=== PATIENT | male | born 1960 | race Caucasian/White ===

== ENCOUNTER 2017-11-28 12:24 | Outpatient (CLI) | payer MEDICARE ==
[2017-11-28 14:38] LABS: #Eosinphils 0.1 thou/uL (0.0-0.7); #Lymphocytes 1.5 thou/uL (1.20-3.40); #Monocytes 0.9 thou/uL (0.11-0.59); #Neutrophils 5.4 thou/uL (1.40-6.50); %Basophils 0.2 % (0.0-1.0); %Eosinophils 1.5 % (0.0-10.0); %Lymphocytes 19.1 % (21.0-51.0); %Monocytes 11.2 % (0.0-10.0); %Neutrophils 67.9 % (42.0-75.0); Hemoglobin 12.5 g/dL (14.0-18.0); Mean Corpuscular HGB CONC 32.9 g/dL (32.0-36.0); Mean Corpuscular Volume 88.3 fl (80.0-94.0); Mean Platelet Volume 7.3 fL (7.4-10.4); Platelet Count 302 thou/uL (130-400); RBC Distribution Width 12.1 % (11.5-14.5); Red Blood Cell (RBC) Count 4.31 mill/uL (4.70-6.10); White Blood Cell (WBC) Count 7.9 thou/uL (4.8-10.8)
[2017-11-28 15:05] LABS: Anion Gap 14 mmol/L (10-20); BUN (Urea Nitrogen) 14 mg/dL (8.4-25.7); Calc. Creatinine Clearance 0 mL/min (70-130); Calcium 9.5 mg/dL (7.8-10.44); Carbon Dioxide 25 mmol/L (22-29); Chloride 104 mmol/L (98-107); Estimated GFR-MDRD Greater than 90; Glucose 72 mg/dL (70-105); Potassium 3.9 mmol/L (3.5-5.1); Sodium 139 mmol/L (136-145)
--- NOTE | 2018-01-30 21:06 | EKG ---
Test Reason : Blood Pressure : / mmHG Vent. Rate : 068 BPM Atrial Rate : 068 BPM P-R Int : 132 ms QRS Dur : 086 ms QT Int : 414 ms P-R-T Axes : 021 002 018 degrees QTc Int : 440 ms Normal sinus rhythm Normal ECG When compared with ECG of 22-JAN-2014 12:57, Premature ventricular complexes are no longer Present Confirmed by SAEID VITAL M.D. ([id number]) on 01/30/2018 9:06:21 PM Referred By: DARIAN Confirmed By:SAEID VITAL M.D.
== END 2017-11-28 12:25 | disposition home or self-care (01) ==
LOC: LABBT 12:24
PROVIDERS: ATTEND Orthopaedic Surgery Hand Surgery
DX: Z01.812 Encounter for preprocedural laboratory examination (principal); Z01.810 Encounter for preprocedural cardiovascular examination; G56.01 Carpal tunnel syndrome, right upper limb; M18.11 Unilateral primary osteoarthritis of first carpometacarpal joint, right hand; M65.341 Trigger finger, right ring finger
CPT/HCPCS: 80048; 85025; 85730; 93005; 93010

== ENCOUNTER 2017-12-18 19:30 | Outpatient (CLI) | payer MEDICARE | END 2017-12-18 19:31 | disposition home or self-care (01) | LOC: SLEEPLAB 19:30 | PROVIDERS: ATTEND Internal Medicine Critical Care Medicine | DX: G47.33 Obstructive sleep apnea (adult) (pediatric) (principal); G47.419 Narcolepsy without cataplexy; E66.9 Obesity, unspecified | CPT/HCPCS: 95811 ==

== ENCOUNTER 2017-12-19 08:00 | Outpatient (CLI) | payer MEDICARE | END 2017-12-19 08:01 | disposition home or self-care (01) | LOC: SLEEPLAB 08:00 | PROVIDERS: ATTEND Internal Medicine Critical Care Medicine | DX: G47.33 Obstructive sleep apnea (adult) (pediatric) (principal); G47.11 Idiopathic hypersomnia with long sleep time; G47.419 Narcolepsy without cataplexy | CPT/HCPCS: 95805 ==

== ENCOUNTER 2018-01-24 09:12 | Outpatient (CLI) | payer MEDICARE ==
[2018-01-24 10:23] LABS: #Eosinphils 0.2 thou/uL (0.0-0.7); #Lymphocytes 1.1 thou/uL (1.20-3.40); #Neutrophils 5.1 thou/uL (1.40-6.50); %Basophils 0.4 % (0.0-1.0); %Eosinophils 2.2 % (0.0-10.0); %Lymphocytes 15.3 % (21.0-51.0); %Monocytes 12.8 % (0.0-10.0); %Neutrophils 69.2 % (42.0-75.0); Hemoglobin 11.9 g/dL (14.0-18.0); Mean Corpuscular HGB CONC 32.6 g/dL (32.0-36.0); Mean Corpuscular Hemoglobin 28.6 pg (27.0-31.0); Mean Corpuscular Volume 87.7 fl (80.0-94.0); Mean Platelet Volume 7.4 fL (7.4-10.4); Platelet Count 279 thou/uL (130-400); RBC Distribution Width 13.4 % (11.5-14.5); Red Blood Cell (RBC) Count 4.15 mill/uL (4.70-6.10); White Blood Cell (WBC) Count 7.4 thou/uL (4.8-10.8)
[2018-01-24 10:32] LABS: Bilirubin Negative (Negative); Blood, Urine Negative (Negative); Clarity CLEAR (Clear); Glucose, Urine (Dipstick) Negative (Negative); Leukocyte Negative (Negative); Nitrite Negative (Negative); Protein, Urine (Dipstick) Negative (Neg-Trace); pH, Urine 6.5 (5.0-9.0)
[2018-01-24 10:35] LABS: Bacteria/HPF None Seen HPF (None Seen); Hyaline Casts/LPF 0-3 HYALINE CAST LPF (0-3 Hyaline); RBC/HPF 0-3 HPF (0-3); Squamous Epithelial None Seen HPF (0-3); WBC/HPF None Seen HPF (0-3)
[2018-01-24 10:42] LABS: Anion Gap 10 mmol/L (10-20); BUN (Urea Nitrogen) 19 mg/dL (8.4-25.7); Calc. Creatinine Clearance 0 mL/min (70-130); Calcium 9.7 mg/dL (7.8-10.44); Carbon Dioxide 27 mmol/L (22-29); Chloride 105 mmol/L (98-107); Estimated GFR-MDRD Greater than 90; Glucose 93 mg/dL (70-105); Potassium 3.9 mmol/L (3.5-5.1); Sodium 138 mmol/L (136-145)
--- NOTE | 2018-01-24 12:48 | RAD ---
TWO VIEWS CHEST: 01/24/2018 HISTORY: Preoperative patient. COMPARISON: 01/27/2017 FINDINGS: There is no pneumothorax, pleural fluid, focal consolidation, or alveolar edema. Heart and mediastin al contours are stable. There is multilevel disk space narrowing and anterior osteophyte formation t hroughout the thoracic spine. The cardiac silhouette is prominent on the lateral view, stable. IMPRESSION: Stable chronic findings, as described above. No acute findings. POS: [facility]
== END 2018-01-24 09:13 | disposition home or self-care (01) ==
LOC: LABBT 09:12
PROVIDERS: ATTEND Orthopaedic Surgery
DX: Z01.818 Encounter for other preprocedural examination (principal); M17.12 Unilateral primary osteoarthritis, left knee
CPT/HCPCS: 71046; 80048; 81001; 85025; 86850; 86900; 86901; 87081; 93005; 93010

== ENCOUNTER 2018-01-31 07:22 | Day surgery (SDC) | payer MEDICARE ==
[2018-01-24 12:00] VITALS: BMI 45.9
[2018-01-31] MEDS ORDERED: Fentanyl 100 MCG/2 ML VIAL ONE ×2 (07:58→11:56)
[2018-01-31] MEDS ORDERED: Midazolam HCl 2 mg/2 ml Vial ONE (07:58)
[2018-01-31] MEDS ORDERED: CEFAZOLIN/Water 2 GM/20 ML SYRINGE ONE (08:18)
[2018-01-31] MEDS ORDERED: Vancomycin HCl 2 GM, Admixture Fee 1 EACH in Sodium Chloride 0.9% 500 ML IVPB SCH (08:30)
[2018-01-31 08:43] LABS: INR-International Normal Ratio 1.1; PTT 36.3 SEC (22.9-36.1); Prothrombin Time 14.1 SEC (12.0-14.7)
[2018-01-31] MEDS ORDERED: Ondansetron HCl/PF 4 MG/2 ML Vial IVP PRN ×3 (09:46→12:40)
[2018-01-31] MEDS ORDERED: Promethazine HCl 25 MG/ML VIAL SLOW IVP PRN (09:46)
[2018-01-31] MEDS ORDERED: Promethazine HCl 25 MG/ML VIAL IM PRN ×3 (09:46→12:40)
[2018-01-31] MEDS ORDERED: Bupivacaine/Epinephrine 0.25% 30 ML VIAL ONE ×2 (09:55→11:16)
[2018-01-31] MEDS ORDERED: Morphine 10 MG/ML VIAL ONE ×2 (10:00→11:27)
[2018-01-31] MEDS ORDERED: Ropivacaine 0.5% HCl/PF (150 MG/30 ML VIAL) ONE (11:16)
[2018-01-31] MEDS ORDERED: Ondansetron HCl/PF 4 MG/2 ML Vial ONE (11:43)
[2018-01-31] MEDS ORDERED: PROPOFOL 200 MG/20 ML VIAL ONE (11:43)
[2018-01-31] MEDS ORDERED: Ketorolac Tromethamine 30 MG/ML VIAL ONE (11:43)
[2018-01-31] MEDS ORDERED: Tranexamic Acid 1,000 MG in Sodium Chloride 0.9% 100 ML IVPB SCH (11:45)
[2018-01-31] MEDS ORDERED: Zolpidem Tartrate 5 MG TAB PO PRN ×2 (11:58→12:40)
[2018-01-31] MEDS ORDERED: traMADol HCl 50 MG TAB PO PRN ×2 (11:58)
[2018-01-31] MEDS ORDERED: HYDROcodone/Acetaminophen 10/325 mg Tablet PO PRN ×3 (11:58→12:40)
[2018-01-31] MEDS ORDERED: Morphine 4 MG/ML VIAL SLOW IVP PRN (12:00)
[2018-01-31] MEDS ORDERED: Acetaminophen 1,000 MG in Premix Bag 1 BAG IVPB PRN (12:18)
[2018-01-31] MEDS ORDERED: oxyCODONE/Acetaminophen 5 mg/325 mg Tablet PO PRN ×2 (12:40→13:03)
[2018-01-31] MEDS ORDERED: Acetaminophen 325 MG TAB PO PRN (12:40)
[2018-01-31] MEDS ORDERED: diphenhydrAMINE 25 MG CAP PO PRN (12:40)
[2018-01-31] MEDS ORDERED: Fentanyl 100 MCG/2 ML VIAL SLOW IVP PRN ×2 (12:40)
[2018-01-31] MEDS: Ketorolac Tromethamine 30 MG/ML VIAL IVP SCH ×3 (12:49→23:27)
[2018-01-31] MEDS ORDERED: Oxymetazoline HCl 0.05% ( 15 ML ) NASAL PRN (13:37)
--- NOTE | 2018-01-31 13:39 | RAD ---
2 VIEWS LEFT KNEE: Date: 01/31/18 COMPARISON: None. HISTORY: Status post left knee arthroplasty. FINDINGS: Two views of the left knee show the patient to be status post left total knee arthroplasty with poste rior patellar resurfacing. No perihardware lucency is seen. Air in the soft tissues is from recent mahmood rgery. IMPRESSION: Status post left knee arthroplasty without evidence of complication. POS: [facility]
[2018-01-31] MEDS: HYDROcodone/Acetaminophen 10/325 mg Tablet PO PRN ×2 (14:30→20:25)
[2018-01-31] MEDS: Gabapentin 300 MG CAP PO SCH ×2 (14:31→20:22)
[2018-01-31] MEDS: Sodium Chloride 0.9% 1,000 ML IV SCH ×2 (14:38→23:28)
--- NOTE | 2018-01-31 14:46 | PDOC.PN ---
- Subjective Encounter Start Date: 01/31/18 Encounter Start Time: 13:45 Subjective: awake, c/o pain and wants pain pump -: no chest pain or sob or palp - Objective MAR Reviewed: Yes Vital Signs & Weight: Vital Signs (12 hours) Temp Pulse Resp BP Pulse Ox 01/31/18 14:09 97.2 F L 62 16 97 01/31/18 13:18 97.2 F L 62 16 134/70 97 Weight Weight 311 lb I&O: 01/30/18 01/31/18 02/01/18 06:59 06:59 06:59 Intake Total 100 Output Total 700 Balance -600 Phys Exam - Physical Examination HEENT: PERRLA, moist MMs Neck: no JVD, supple Respiratory: no wheezing, no rales Cardiovascular: RRR, no significant murmur Gastrointestinal: soft, non-tender, positive bowel sounds Musculoskeletal: pulses present left knee in dressing Neurological: non-focal, moves all 4 limbs Psychiatric: A&O x 3 Dx/Plan (1) Status post total knee replacement, left Code(s): Z96.652 - PRESENCE OF LEFT ARTIFICIAL KNEE JOINT Status: Acute (2) Obesity Code(s): E66.9 - OBESITY, UNSPECIFIED Status: Chronic Qualifiers: Obesity classification: adult class 3 (BMI >= 40) Body mass index: BMI 45.0 -49.9 (3) Hypothyroidism Code(s): E03.9 - HYPOTHYROIDISM, UNSPECIFIED Status: Chronic Qualifiers: Hypothyroidism type: unspecified Qualified Code(s): E03.9 - Hypothyroidism , unspecified (4) BPH (benign prostatic hyperplasia) Code(s): N40.0 - BENIGN PROSTATIC HYPERPLASIA WITHOUT LOWER URINRY TRACT SYMP Status: Chronic Qualifiers: Lower urinary tract symptom presence: unspecified whether lower urinary tract symptoms present Qualified Code(s): N40.0 - Benign prostatic hyperplasia without lower urinary tract symptoms (5) PRINCESS (obstructive sleep apnea) Code(s): G47.33 - OBSTRUCTIVE SLEEP APNEA (ADULT) (PEDIATRIC) Status: Chronic - Plan on asp bid for dvt prophylaxis -: wants opioid wire weaver, d/w [facility] is trying to set it up -: currently on Marcaine nr block, fentanyl prn for pain -: continue gabapentin, flomax and synthroid -: has voided post op, watch for resp depression with multiple pain meds/princess * . Review of Systems - Medications/Allergies Allergies/Adverse Reactions: Allergies Allergy/AdvReac Type Severity Reaction Status Date / Time No Known Allergies Allergy Verified 01/24/18 12:00 Medications: Current Medications Acetaminophen (Tylenol) 650 mg PO Q4H PRN PRN Reason: NESBITT/ T > 101F; Mild Pain (1-3) Hydrocodone Bitart/Acetaminophen ([place] 10/325) 1 tab PO Q4H PRN PRN Reason: Moderate Pain (4-6) Hydrocodone Bitart/Acetaminophen ([place] 10/325) 2 tab PO Q4H PRN PRN Reason: Severe Pain (7-10) Last Admin: 01/31/18 14:30 Dose: 2 tab Aspirin (Ecotrin) 81 mg PO BID [facility] Cefazolin Sodium (Ancef) 2 gm SLOW IVP 0800,1600,2359 [facility] Stop: 02/01/18 00:00 Cyclobenzaprine HCl (Flexeril) 10 mg PO TIDPRN PRN PRN Reason: Muscle Spasm Diphenhydramine HCl (Benadryl) 25 mg PO Q6H PRN PRN Reason: Itching Fentanyl (Sublimaze) 50 mcg SLOW IVP Q30MIN PRN PRN Reason: Moderate Pain (4-6) Fentanyl (Sublimaze) 100 mcg SLOW IVP Q1H PRN PRN Reason: Severe Pain (7-10) Ferrous Gluconate (Fergon) 324 mg PO BID [facility] Gabapentin (Neurontin) 300 mg PO TID [facility] Last Admin: 01/31/18 14:31 Dose: 300 mg Bupivacaine HCl 50 ml/ Sodium (Chloride) 100 mls @ 8 mls/hr NERVE BLCK INF [facility] Acetaminophen 1,000 mg/ Device 100 mls @ 400 mls/hr IVPB Q6H PRN PRN Reason: Fever/Mild Pain Stop: 02/01/18 12:19 Sodium Chloride (Normal Saline 0.9%) 1,000 mls @ 100 mls/hr IV .Q10H [facility] Last Admin: 01/31/18 14:38 Dose: 1,000 mls Vancomycin HCl 2 gm/ Sodium (Chloride) 500 mls @ 250 mls/hr IVPB 2000 [facility] Stop: 01/31/18 21:59 Iron/Minerals/Multivitamins (Theragran M) 1 tab PO DAILY [facility] Ketorolac Tromethamine (Toradol) 30 mg IVP Q6HR [facility] Stop: 02/02/18 06:01 Last Admin: 01/31/18 12:49 Dose: Not Given Levothyroxine Sodium (Synthroid) 50 mcg PO 0600 [facility] Modafinil (Provigil) 200 mg PO BID [facility] Morphine Sulfate (Morphine) 2 mg SLOW IVP Q1H PRN PRN Reason: Breakthrough Pain Ondansetron HCl (Zofran) 4 mg IVP Q6H PRN PRN Reason: Nausea/Vomiting Oxycodone/Acetaminophen (Percocet 5/325) 1 tab PO Q4H PRN PRN Reason: SEVERE Pain 1ST LINE Oxycodone/Acetaminophen (Percocet 5/325) 2 tab PO Q4H PRN PRN Reason: SEVERE Pain 2ND LINE Oxymetazoline HCl (Oxymetazoline Hcl) 0 sprays NASAL DAILYPRN PRN PRN Reason: Nasal Congestion Promethazine HCl (Phenergan) 12.5 mg IM Q4H PRN PRN Reason: Nausea/Vomiting Senna/Docusate Sodium (Senokot S) 2 tab PO BID [facility] Sodium Chloride (Flush - Normal Saline) 10 ml IVF PRN PRN PRN Reason: Saline Flush Tamsulosin HCl (Flomax) 0.4 mg PO QAM [facility] Tramadol HCl (Ultram) 50 mg PO Q6H PRN PRN Reason: Mild Pain (1-3) Tramadol HCl (Ultram) 100 mg PO Q6H PRN PRN Reason: Mild Pain (1-3) Zolpidem Tartrate (Ambien) 5 mg PO HSPRN PRN PRN Reason: Insomnia
[2018-01-31] MEDS: CEFAZOLIN/Water 2 GM/20 ML SYRINGE SLOW IVP SCH ×2 (18:08→23:26)
[2018-01-31] MEDS: Aspirin 81 mg Enteric Coated Tablet PO SCH (20:22)
[2018-01-31] MEDS: Senokot S 8.6-50 MG TAB PO SCH (20:22)
[2018-01-31] MEDS: Ferrous Gluconate 324 MG TAB PO SCH (20:22)
[2018-01-31] MEDS: Modafinil 100 MG TAB PO SCH (20:25)
[2018-01-31] MEDS: Cyclobenzaprine 10 MG TAB PO PRN (21:10)
[2018-01-31] MEDS: traMADol HCl 50 MG TAB PO PRN (22:23)
[2018-01-31] MEDS: Bupivacaine 0.5% 50 ML in Sodium Chloride 0.9% 50 ML NERVE BLCK SCH (23:30)
[2018-02-01] MEDS: HYDROcodone/Acetaminophen 10/325 mg Tablet PO PRN ×2 (00:45→06:28)
[2018-02-01 04:43] LABS: Hemoglobin 10.4 g/dL (14.0-18.0); Mean Corpuscular HGB CONC 32.7 g/dL (32.0-36.0); Mean Corpuscular Hemoglobin 28.3 pg (27.0-31.0); Mean Corpuscular Volume 86.3 fl (80.0-94.0); Mean Platelet Volume 6.5 fL (7.4-10.4); Platelet Count 221 thou/uL (130-400); RBC Distribution Width 13.4 % (11.5-14.5); Red Blood Cell (RBC) Count 3.68 mill/uL (4.70-6.10); White Blood Cell (WBC) Count 8.8 thou/uL (4.8-10.8)
[2018-02-01 04:55] LABS: Anion Gap 11 mmol/L (10-20); BUN (Urea Nitrogen) 20 mg/dL (8.4-25.7); Calc. Creatinine Clearance 198 mL/min (70-130); Calcium 8.8 mg/dL (7.8-10.44); Carbon Dioxide 26 mmol/L (22-29); Chloride 103 mmol/L (98-107); Estimated GFR-MDRD Greater than 90; Glucose 103 mg/dL (70-105); Sodium 136 mmol/L (136-145)
[2018-02-01] MEDS: Levothyroxine Sodium 50 MCG TAB PO SCH (06:28)
[2018-02-01] MEDS: Ketorolac Tromethamine 30 MG/ML VIAL IVP SCH ×4 (06:29→23:05)
[2018-02-01] MEDS: traMADol HCl 50 MG TAB PO PRN (07:12)
[2018-02-01] MEDS: Cyclobenzaprine 10 MG TAB PO PRN (08:03)
[2018-02-01] MEDS: Sodium Chloride 0.9% 1,000 ML IV SCH ×2 (08:11→18:47)
[2018-02-01] MEDS: Aspirin 81 mg Enteric Coated Tablet PO SCH ×2 (08:11→20:45)
[2018-02-01] MEDS: Ferrous Gluconate 324 MG TAB PO SCH ×2 (08:12→20:45)
[2018-02-01] MEDS: Tamsulosin HCl 0.4 MG CAP PO SCH (08:12)
[2018-02-01] MEDS: Multivitamin W/ Minerals 1 TAB PO SCH (08:12)
[2018-02-01] MEDS: Senokot S 8.6-50 MG TAB PO SCH ×2 (08:12→20:45)
[2018-02-01] MEDS: Gabapentin 300 MG CAP PO SCH ×3 (08:12→20:45)
[2018-02-01] MEDS: Modafinil 100 MG TAB PO SCH ×2 (09:10→20:46)
[2018-02-01] MEDS ORDERED: fentaNYL Citrate/PF 2,000 MCG in Sodium Chloride 0.9% 60 ML IV PRN (11:30)
[2018-02-01] MEDS: Acetaminophen 1,000 MG in Premix Bag 1 BAG IVPB SCH ×3 (11:57→23:06)
--- NOTE | 2018-02-01 12:12 | PDOC.PN ---
- Subjective Encounter Start Date: 02/01/18 Encounter Start Time: 09:45 Subjective: just got fentanyl 100mg iv and a bit lethargic -: no sob or chest pain - Objective MAR Reviewed: Yes Vital Signs & Weight: Vital Signs (12 hours) Temp Pulse Resp BP Pulse Ox 02/01/18 08:00 98.6 F 86 22 H 120/79 93 L 02/01/18 05:00 99.1 F 85 16 106/66 95 Weight Weight 311 lb I&O: 01/31/18 02/01/18 02/02/18 06:59 06:59 06:59 Intake Total 100 Output Total 700 Balance -600 Result Diagrams: 02/01/18 04:33 02/01/18 04:33 Phys Exam - Physical Examination HEENT: PERRLA, moist MMs Neck: no nodes, no JVD Respiratory: no wheezing, no rales Cardiovascular: RRR, no significant murmur Gastrointestinal: soft, non-tender, positive bowel sounds Musculoskeletal: pulses present left knee in dressing Neurological: non-focal, moves all 4 limbs Psychiatric: A&O x 3 Dx/Plan (1) Status post total knee replacement, left Code(s): Z96.652 - PRESENCE OF LEFT ARTIFICIAL KNEE JOINT Status: Acute (2) Obesity Code(s): E66.9 - OBESITY, UNSPECIFIED Status: Chronic Qualifiers: Obesity classification: adult class 3 (BMI >= 40) Body mass index: BMI 45.0 -49.9 (3) Hypothyroidism Code(s): E03.9 - HYPOTHYROIDISM, UNSPECIFIED Status: Chronic Qualifiers: Hypothyroidism type: unspecified Qualified Code(s): E03.9 - Hypothyroidism , unspecified (4) BPH (benign prostatic hyperplasia) Code(s): N40.0 - BENIGN PROSTATIC HYPERPLASIA WITHOUT LOWER URINRY TRACT SYMP Status: Chronic Qualifiers: Lower urinary tract symptom presence: unspecified whether lower urinary tract symptoms present Qualified Code(s): N40.0 - Benign prostatic hyperplasia without lower urinary tract symptoms (5) PRINCESS (obstructive sleep apnea) Code(s): G47.33 - OBSTRUCTIVE SLEEP APNEA (ADULT) (PEDIATRIC) Status: Chronic - Plan continue asp bid, gabapentin, synthroid and flomax -: pain mgmt per ortho advice -: has worked with PT yesterday -: dc plan per ortho advice * . Review of Systems - Medications/Allergies Allergies/Adverse Reactions: Allergies Allergy/AdvReac Type Severity Reaction Status Date / Time No Known Allergies Allergy Verified 01/24/18 12:00 Medications: Current Medications Acetaminophen (Tylenol) 650 mg PO Q4H PRN PRN Reason: NESBITT/ T > 101F; Mild Pain (1-3) Aspirin (Ecotrin) 81 mg PO BID [facility] Last Admin: 02/01/18 08:11 Dose: 81 mg Diphenhydramine HCl (Benadryl) 25 mg PO Q6H PRN PRN Reason: Itching Ferrous Gluconate (Fergon) 324 mg PO BID [facility] Last Admin: 02/01/18 08:12 Dose: 324 mg Gabapentin (Neurontin) 300 mg PO TID [facility] Last Admin: 02/01/18 08:12 Dose: 300 mg Bupivacaine HCl 50 ml/ Sodium (Chloride) 100 mls @ 8 mls/hr NERVE BLCK INF [facility] Last Admin: 01/31/18 23:30 Dose: 100 mls Sodium Chloride (Normal Saline 0.9%) 1,000 mls @ 100 mls/hr IV .Q10H [facility] Last Admin: 02/01/18 08:11 Dose: Not Given Acetaminophen 1,000 mg/ Device 100 mls @ 400 mls/hr IVPB Q6HR [facility] Stop: 02/02/18 06:14 Last Admin: 02/01/18 11:57 Dose: 100 mls Fentanyl Citrate 2,000 mcg/ (Sodium Chloride) 100 mls @ 0 mls/hr IV INF PRN; As Directed PRN Reason: Pain Iron/Minerals/Multivitamins (Theragran M) 1 tab PO DAILY [facility] Last Admin: 02/01/18 08:12 Dose: 1 tab Ketorolac Tromethamine (Toradol) 30 mg IVP Q6HR [facility] Stop: 02/02/18 06:01 Last Admin: 02/01/18 11:53 Dose: 30 mg Levothyroxine Sodium (Synthroid) 50 mcg PO 0600 [facility] Last Admin: 02/01/18 06:28 Dose: 50 mcg Modafinil (Provigil) 200 mg PO BID [facility] Last Admin: 02/01/18 09:10 Dose: 200 mg Ondansetron HCl (Zofran) 4 mg IVP Q6H PRN PRN Reason: Nausea/Vomiting Oxymetazoline HCl (Oxymetazoline Hcl) 0 sprays NASAL DAILYPRN PRN PRN Reason: Nasal Congestion Promethazine HCl (Phenergan) 12.5 mg IM Q4H PRN PRN Reason: Nausea/Vomiting Senna/Docusate Sodium (Senokot S) 2 tab PO BID [facility] Last Admin: 02/01/18 08:12 Dose: 2 tab Sodium Chloride (Flush - Normal Saline) 10 ml IVF PRN PRN PRN Reason: Saline Flush Tamsulosin HCl (Flomax) 0.4 mg PO QAM [facility] Last Admin: 02/01/18 08:12 Dose: 0.4 mg
[2018-02-01] MEDS: Bupivacaine 0.5% 50 ML in Sodium Chloride 0.9% 50 ML NERVE BLCK SCH (13:07)
--- NOTE | 2018-02-01 13:43 | OP ---
DATE OF PROCEDURE: 01/31/2018 PREOPERATIVE DIAGNOSIS: Left knee osteoarthritis. POSTOPERATIVE DIAGNOSIS: Left knee osteoarthritis. PROCEDURE PERFORMED: Left total knee arthroplasty. STAFF: Kenan Lorenz M.D. PROMOTIONS EXECUTIVE PRODUCER: Talon Garcia PA-C. ANESTHESIA: Conn. The patient received LMA with a adductor canal catheter and single shot sciatic. ESTIMATED BLOOD LOSS: 100 mL. TOURNIQUET TIME: 95 minutes at 300 mmHg. ANTIBIOTICS: Ancef 2 grams and vancomycin 2 grams. The patient received TXA 1 gram. IMPLANTS: A [place] Triathlon size 6 femur, size 6 tibial tray, A32 patella, and a Polar OLED poly 7 size 9 mm, Triathlon X3. COMPLICATIONS: None. HISTORY OF PRESENT ILLNESS: Mr. Romeo is a pleasant 57-year-old male who has a history of right total knee arthroplasty. The patient has history of left knee arthritis, had received injections with pain relief. The patient complained of pain of 10/10. He has been taking care of his and he continued to have pain in his knee. The patient understands the risks and benefits of left total knee arthroplasty to include pain, scar, bleeding, infection, damage to vital structures, decreased range of motion or strength, failure of procedure, continued pain despite intervention, loss of life or limb. The patient understood the risks and benefits and elected to proceed. PROCEDURE NOTE: Time-out was performed designating the patient's left lower extremity as the operative site based on sight, consents, marking. After completion of timeout, the patient's lower extremity was prepped and draped in sterile fashion. The patient had the tourniquet brought up and left up for a total of 95 minutes. With anterior midline approach, medial patellar arthrotomy , we exposed and excised the fat pad, removed some of the osteophytes of the patella. We then did a medial soft tissue release, which significantly scarred a subluxed meniscus that was scarred into the soft tissue plane. We had to go back and do a little more release for complete circumferential distally for large medial osteophyte. We then everted the patella and brought the patient up into flexion, found the distal femur, removed some of the synovium to expose the distal femur for a cut. We then pinned our guide into place, cut in 0 degrees varus valgus 8 and 11 with 5 degrees anterior slope. We cut the bone. We then went back and sized the patient's posterior medial wear, which we accounted for to get a better epicondylar access, pinned our tray into place in 3 degrees of external rotation. We then sized to a size 6 at his previous side , pinned our block in place, cut anterior and posterior and chamfer cuts, had a little bit of notching anteriorly, which we beveled with the saw. We then removed all the bone osteophytes. We then curetted and decompressed the medial gutter. We then moved to our tibia. It was difficult to get the patient's tibia subluxed. We actually got into bone the first time and placed a pickle fork in position. We then placed it a second time. We excised it. We pinned the guide into the tibia to map out the femur, but we had some difficulty with this perfectly placed; therefore, we re-pinned it. After we had exposed the tibia better, we pinned it in place. We cut at first with a -1 and 3 and went up to 1 and 5 mm 0 degrees varus valgus with about a 4-degree slope. The patient had some difficulties because he had a defect in the posteromedial aspect, which we saw did not take as much medially off as we desired. We removed the fragments. We then subluxed the tibia, placed our lamina certified technician specialist, excised all the posterior fragments using our osteotome as well as curette to decompress the PCL, released the PCL to degree of extent. We also decompressed the posterior medial tibia as well as removed the osteophytes off the medial aspect of the tibia to rasp the posterior medial osteophyte down. We then, after decompressed all the gutters, removed all the menisci. We placed our tibial tray in line with the tibial tubercle anterior one-third and pinned it into position and placed the 9 mm poly. The patient had full extension, good flexion and stability. He did split the tray a little bit in flexion which we think was likely the posterior medial rise in our tibial cut, which we then rasped again to release the PCL. We liked the overall tracking and alignment with good position of the tibial as well as the femur. Therefore, we pinned it even with patella. We cut the patella down from 24 down to about 14 mm, rongeured out some of the medial osteophytes, and felt like we had good size, drilled and good tracking. We then removed all the patella. We then placed the patient's subtle flexion and drilled our lug holes for femur, removed our implants, and except for tibia tray cut our keel for tibia, removed all the implants, recessed PCL, ensured that we rasped on the tibia to ensure that helped with its positioning. Washed all the components out. We then cemented the tibia, femur, removed excess cement, placed in full extension and good flexion. We found it did not split. We then had good anterior, posterior translation, removed all the excess cement, everted the patella, cemented the patella and placed a clamp across removed all excess cement, washed and closed the medial patellar arthrotomy with #2 Vicryl, 2 Quill, 0 Quill, 2-0 Quill, and glue. The patient will be admitted per protocol at [facility] outpatient. We will see how he does. We will have a rehab consult given the patient's previous history of difficulty after his last total knee. CHAIM
[2018-02-02] MEDS: Bupivacaine 0.5% 50 ML in Sodium Chloride 0.9% 50 ML NERVE BLCK SCH (03:38)
[2018-02-02 04:32] LABS: Hemoglobin 10.4 g/dL (14.0-18.0); Mean Corpuscular HGB CONC 32.8 g/dL (32.0-36.0); Mean Corpuscular Hemoglobin 28.4 pg (27.0-31.0); Mean Corpuscular Volume 86.8 fl (80.0-94.0); Mean Platelet Volume 7.1 fL (7.4-10.4); Platelet Count 247 thou/uL (130-400); RBC Distribution Width 13.5 % (11.5-14.5); Red Blood Cell (RBC) Count 3.67 mill/uL (4.70-6.10); White Blood Cell (WBC) Count 8.9 thou/uL (4.8-10.8)
[2018-02-02] MEDS: Ketorolac Tromethamine 30 MG/ML VIAL IVP SCH (05:38)
[2018-02-02] MEDS: Acetaminophen 1,000 MG in Premix Bag 1 BAG IVPB SCH (05:38)
[2018-02-02] MEDS: Sodium Chloride 0.9% 1,000 ML IV SCH (05:39)
[2018-02-02] MEDS: Levothyroxine Sodium 50 MCG TAB PO SCH (05:39)
[2018-02-02] MEDS: Modafinil 100 MG TAB PO SCH ×2 (09:27→15:19)
[2018-02-02] MEDS: Gabapentin 300 MG CAP PO SCH ×2 (09:28→15:03)
[2018-02-02] MEDS: Multivitamin W/ Minerals 1 TAB PO SCH (09:28)
[2018-02-02] MEDS: Ferrous Gluconate 324 MG TAB PO SCH (09:29)
[2018-02-02] MEDS: Senokot S 8.6-50 MG TAB PO SCH (09:29)
[2018-02-02] MEDS: Tamsulosin HCl 0.4 MG CAP PO SCH (09:30)
[2018-02-02] MEDS: Aspirin 81 mg Enteric Coated Tablet PO SCH (09:30)
[2018-02-02] MEDS ORDERED: oxyCODONE/Acetaminophen 5 mg/325 mg Tablet PO PRN ×5 (09:58→12:16)
[2018-02-02] MEDS: oxyCODONE/Acetaminophen 5 mg/325 mg Tablet PO PRN ×2 (12:19→16:07)
[2018-02-02] MEDS ORDERED: Ropivacaine 0.2% 550 ML 550 ML NERVE BLCK SCH (13:14)
--- NOTE | 2018-02-02 13:40 | PDOC.PN ---
- Subjective Encounter Start Date: 02/02/18 Encounter Start Time: 09:30 Subjective: feels better, pain is controlled well now -: is seen ambulating with PT this am - Objective MAR Reviewed: Yes Vital Signs & Weight: Vital Signs (12 hours) Temp Pulse Resp BP Pulse Ox 02/02/18 11:05 98.8 F 96 16 142/87 H 96 02/02/18 07:40 98.6 F 89 16 127/86 95 02/02/18 04:09 98.4 F 85 16 106/72 94 L Weight Admit Weight 311 lb Weight 311 lb I&O: 02/01/18 02/02/18 02/03/18 06:59 06:59 06:59 Intake Total 100 4620 Output Total 700 1450 Balance -600 3170 Result Diagrams: 02/02/18 03:51 02/01/18 04:33 Phys Exam - Physical Examination HEENT: PERRLA, moist MMs Neck: no JVD, supple Respiratory: no wheezing, no rales Cardiovascular: RRR, no significant murmur Gastrointestinal: soft, non-tender, positive bowel sounds Musculoskeletal: pulses present left knee post op changes, looks good Neurological: non-focal, moves all 4 limbs Psychiatric: normal affect, A&O x 3 Dx/Plan (1) Status post total knee replacement, left Code(s): Z96.652 - PRESENCE OF LEFT ARTIFICIAL KNEE JOINT Status: Acute (2) Obesity Code(s): E66.9 - OBESITY, UNSPECIFIED Status: Chronic Qualifiers: Obesity classification: adult class 3 (BMI >= 40) Body mass index: BMI 45.0 -49.9 (3) Hypothyroidism Code(s): E03.9 - HYPOTHYROIDISM, UNSPECIFIED Status: Chronic Qualifiers: Hypothyroidism type: unspecified Qualified Code(s): E03.9 - Hypothyroidism , unspecified (4) BPH (benign prostatic hyperplasia) Code(s): N40.0 - BENIGN PROSTATIC HYPERPLASIA WITHOUT LOWER URINRY TRACT SYMP Status: Chronic Qualifiers: Lower urinary tract symptom presence: unspecified whether lower urinary tract symptoms present Qualified Code(s): N40.0 - Benign prostatic hyperplasia without lower urinary tract symptoms (5) PRINCESS (obstructive sleep apnea) Code(s): G47.33 - OBSTRUCTIVE SLEEP APNEA (ADULT) (PEDIATRIC) Status: Chronic - Plan hemostable -: wears his cpap at night -: dc plan per ortho advice -: is working well with PT * . Review of Systems - Medications/Allergies Allergies/Adverse Reactions: Allergies Allergy/AdvReac Type Severity Reaction Status Date / Time No Known Allergies Allergy Verified 01/24/18 12:00 Medications: Current Medications Acetaminophen (Tylenol) 650 mg PO Q4H PRN PRN Reason: NESBITT/ T > 101F; Mild Pain (1-3) Aspirin (Ecotrin) 81 mg PO BID [facility] Last Admin: 02/02/18 09:30 Dose: 81 mg Diphenhydramine HCl (Benadryl) 25 mg PO Q6H PRN PRN Reason: Itching Ferrous Gluconate (Fergon) 324 mg PO BID [facility] Last Admin: 02/02/18 09:29 Dose: 324 mg Gabapentin (Neurontin) 300 mg PO TID [facility] Last Admin: 02/02/18 09:28 Dose: 300 mg Sodium Chloride (Normal Saline 0.9%) 1,000 mls @ 100 mls/hr IV .Q10H [facility] Last Admin: 02/02/18 05:39 Dose: Not Given Ropivacaine (Ropivacaine 0.2% 550 Ml) 550 mls @ 10 mls/hr NERVE BLCK INF [facility] Iron/Minerals/Multivitamins (Theragran M) 1 tab PO DAILY [facility] Last Admin: 02/02/18 09:28 Dose: 1 tab Levothyroxine Sodium (Synthroid) 50 mcg PO 0600 [facility] Last Admin: 02/02/18 05:39 Dose: 50 mcg Modafinil (Provigil) 200 mg PO 0700,1400 [facility] Last Admin: 02/02/18 09:27 Dose: 200 mg Ondansetron HCl (Zofran) 4 mg IVP Q6H PRN PRN Reason: Nausea/Vomiting Oxycodone/Acetaminophen (Percocet 5/325) 1 tab PO Q4H PRN PRN Reason: Moderate Pain (2-4) Oxycodone/Acetaminophen (Percocet 5/325) 2 tab PO Q4H PRN PRN Reason: Severe Pain (5-10) Last Admin: 02/02/18 12:19 Dose: 2 tab Oxymetazoline HCl (Oxymetazoline Hcl) 0 sprays NASAL DAILYPRN PRN PRN Reason: Nasal Congestion Promethazine HCl (Phenergan) 12.5 mg IM Q4H PRN PRN Reason: Nausea/Vomiting Senna/Docusate Sodium (Senokot S) 2 tab PO BID [facility] Last Admin: 02/02/18 09:29 Dose: 2 tab Sodium Chloride (Flush - Normal Saline) 10 ml IVF PRN PRN PRN Reason: Saline Flush Tamsulosin HCl (Flomax) 0.4 mg PO QAM [facility] Last Admin: 02/02/18 09:30 Dose: 0.4 mg
[2018-02-02 16:23] VITALS: BP 139/71; TEMP 99
--- NOTE | 2018-02-02 18:13 | DIS ---
DATE OF ADMISSION: 01/31/2018 DATE OF DISCHARGE: 02/02/2018 DISCHARGE DISPOSITION: To home. PRIMARY DISCHARGE DIAGNOSIS: Status post left total knee replacement. SECONDARY DISCHARGE DIAGNOSES: Hypothyroidism, benign prostatic hypertrophy, obesity, obstructive sleep apnea. PROCEDURES DONE DURING HOSPITALIZATION: Patient has had left total knee replacement done by Dr. Lorenz on 01/31/2018. Discharge H&H 10 and 31, platelet count 247. Discharge BUN and creatinine is 20 and 0.8. DISCHARGE MEDICATIONS: Aspirin 81 mg p.o. twice daily for post-knee replacement , DVT prophylaxis, Flexeril 1 tab 10 mg p.r.n. 3 times daily, diclofenac 50 mg twice daily p.r.n., gabapentin 300 mg p.o. 3 times daily, levothyroxine 50 mcg p.o. daily, Percocet p.r.n., Flomax 0.4 mg p.o. q.a.m., Ultram p.r.n. ALLERGIES: No known drug allergies. DISCHARGE PLAN: The patient to follow up with Dr. Lorenz as advised and primary care physician in 1 week. BRIEF COURSE DURING HOSPITALIZATION: The patient electively got admitted for left total knee replacement by Dr. Lorenz. This was done on the . Postop [facility] were consulted for comanagement of medical issues. The patient has remained hemodynamically stable postop. He has been compliant with his CPAP. Patient did not have any urinary retention. He needs to continue aspirin twice daily for postop left knee replacement, DVT prophylaxis. He is actively participating with physical therapy. He has been cleared for discharge later this evening by Orthopedic Surgery. Please see a face to face documentation on [facility] for the day of discharge. WILLYD
== END 2018-02-02 18:00 | disposition home or self-care (01) ==
LOC: SDC 07:22 → SJJU 12:40 → SDC 02-02 18:00
PROVIDERS: ATTEND Orthopaedic Surgery
PROC: 0SRD0J9 Replacement of Left Knee Joint with Synthetic Substitute, Cemented, Open Approach (ICD-10-PCS; principal; 2018-01-31)
DX: E66.9 Obesity, unspecified; F17.290 Nicotine dependence, other tobacco product, uncomplicated; Z68.42 Body mass index [BMI] 45.0-49.9, adult; E03.9 Hypothyroidism, unspecified; Z79.82 Long term (current) use of aspirin; N40.0 Benign prostatic hyperplasia without lower urinary tract symptoms; M17.12 Unilateral primary osteoarthritis, left knee; G47.33 Obstructive sleep apnea (adult) (pediatric); Z99.89 Dependence on other enabling machines and devices; Z79.899 Other long term (current) drug therapy
CPT/HCPCS: 27447; 73560; 80048; 85027; 85610; 85730; 86850; 86900; 86901; 97110 ×2; 97116 ×3; 97139 ×3; 97150; 97530 ×2; A4306; C1713; C1776; G8978; G8979; G8987; G8988; J3010; 36415; J0131; J1885; J2250; J2270; J2405; J2704; J2795; J3370; J3490; J7050

== ENCOUNTER 2022-04-30 11:51 | Inpatient (IN) | payer MEDICARE, OTHER ==
[2022-04-30 12:32] LABS: #Basophils 0.1 thou/uL (0.0-0.2); #Eosinphils 0.2 thou/uL (0.0-0.7); #Lymphocytes 1.4 thou/uL (1.20-3.40); #Monocytes 1.2 thou/uL (0.11-0.59); #Neutrophils 7.1 thou/uL (1.40-6.50); %Basophils 0.5 % (0.0-1.0); %Lymphocytes 13.7 % (21.0-51.0); %Monocytes 12.1 % (0.0-10.0); %Neutrophils 71.6 % (42.0-75.0); Hemoglobin 10.6 g/dL (14.0-18.0); Mean Corpuscular HGB CONC 30.6 g/dL (32.0-36.0); Mean Corpuscular Hemoglobin 26.4 pg (27.0-31.0); Mean Corpuscular Volume 86.4 fL (78.0-98.0); Mean Platelet Volume 7.8 fL (7.4-10.4); Platelet Count 200 thou/uL (130-400); RBC Distribution Width 13.8 % (11.5-14.5); Red Blood Cell (RBC) Count 4.03 mill/uL (4.70-6.10)
[2022-04-30] MEDS ORDERED: Dexamethasone 10 MG/ML VIAL ONE (12:35)
[2022-04-30 12:52] LABS: ALT (SGPT) 18 U/L (8-55); AST (SGOT) 20 U/L (5-34); Albumin 3.4 g/dL (3.5-5.0); Alkaline Phosphatase 81 U/L (40-110); Anion Gap 14 mmol/L (10-20); BUN (Urea Nitrogen) 25 mg/dL (8.4-25.7); Bilirubin, Total 0.4 mg/dL (0.2-1.2); Calc. Creatinine Clearance 0 mL/min (70-130); Carbon Dioxide 27 mmol/L (22-29); Chloride 99 mmol/L (98-107); Estimated GFR 59; Glucose 122 mg/dL (70-105); Potassium 4.7 mmol/L (3.5-5.1); Protein, Total 7.4 g/dL (6.0-8.3); Sodium 135 mmol/L (136-145)
[2022-04-30 12:57] LABS: Calcium 14.2 mg/dL (7.8-10.44)
[2022-04-30] MEDS ORDERED: Calcitonin,Synthetic 200 UNITS/ML MDV SC SCH (13:30)
[2022-04-30 15:25] LABS: Bilirubin Negative (Negative); Blood, Urine Negative (Negative); Clarity Clear (Clear); Glucose, Urine (Dipstick) Normal (Negative); Ketone, Urine Negative (Negative); Leukocyte Negative Leu/uL (Negative); Nitrite Negative (Negative); Protein, Urine (Dipstick) Negative (Neg-Trace); Specific Gravity, Urine 1.017 (1.002-1.036); Urobilinogen Normal mg/dL (Less than 2); pH, Urine 5.5 (5.0-9.0)
[2022-04-30] MEDS ORDERED: hydrALAZINE 20 MG/ML VIAL SLOW IVP PRN (15:52)
[2022-04-30] MEDS ORDERED: Ondansetron ODT 4 MG TAB PO PRN (15:52)
[2022-04-30] MEDS ORDERED: Ondansetron PF 4 MG/2 ML Vial IVP PRN (15:52)
[2022-04-30] MEDS: Sodium Chloride 0.9% 1,000 ML IV SCH ×2 (17:11→22:38)
[2022-04-30 17:16] VITALS: BMI 48.2
[2022-04-30] MEDS: Dexamethasone 4 mg/ml Vial SLOW IVP SCH ×2 (19:02→23:49)
[2022-04-30] MEDS: HYDROcodone/Acetaminophen 10/325 mg Tablet PO PRN (20:38)
[2022-04-30] MEDS: Polyethylene Glycol 3350 17 GM Packet PO SCH (20:38)
[2022-04-30] MEDS: Gabapentin 300 MG CAP PO SCH (20:39)
[2022-04-30] MEDS: Acetaminophen 500 MG TAB PO PRN (23:47)
[2022-05-01] MEDS: HYDROcodone/Acetaminophen 10/325 mg Tablet PO PRN ×2 (04:24→20:19)
[2022-05-01 05:52] LABS: #Lymphocytes 0.7 thou/uL (1.20-3.40); #Monocytes 0.7 thou/uL (0.11-0.59); #Neutrophils 9.1 thou/uL (1.40-6.50); %Basophils 0.1 % (0.0-1.0); %Eosinophils 0.2 % (0.0-10.0); %Lymphocytes 6.9 % (21.0-51.0); %Monocytes 6.5 % (0.0-10.0); %Neutrophils 86.4 % (42.0-75.0); ALT (SGPT) 17 U/L (8-55); AST (SGOT) 12 U/L (5-34); Albumin 3.4 g/dL (3.5-5.0); Alkaline Phosphatase 78 U/L (40-110); Anion Gap 15 mmol/L (10-20); BUN (Urea Nitrogen) 26 mg/dL (8.4-25.7); Bilirubin, Total 0.3 mg/dL (0.2-1.2); Calc. Creatinine Clearance 124 mL/min (70-130); Carbon Dioxide 25 mmol/L (22-29); Chloride 103 mmol/L (98-107); Estimated GFR 61; Globulin 4.1 g/dL (2.4-3.5); Glucose 168 mg/dL (70-105); Hemoglobin 10.9 g/dL (14.0-18.0); MDiff Complete? YES; Mean Corpuscular Hemoglobin 26.7 pg (27.0-31.0); Mean Corpuscular Volume 86.1 fL (78.0-98.0); Mean Platelet Volume 7.4 fL (7.4-10.4); Platelet Clumps SLIGHT; Platelet Count 306 thou/uL (130-400); Platelet Morphology Comment Appears Adequate; Potassium 4.3 mmol/L (3.5-5.1); Protein, Total 7.5 g/dL (6.0-8.3); RBC Distribution Width 13.7 % (11.5-14.5); Red Blood Cell (RBC) Count 4.08 mill/uL (4.70-6.10); Sodium 139 mmol/L (136-145); White Blood Cell (WBC) Count 10.5 thou/uL (4.8-10.8)
[2022-05-01 05:55] LABS: Calcium 12.9 mg/dL (7.8-10.44)
[2022-05-01] MEDS: Dexamethasone 4 mg/ml Vial SLOW IVP SCH ×3 (05:58→18:11)
[2022-05-01] MEDS: Levothyroxine Sodium 50 MCG TAB PO SCH (05:58)
[2022-05-01] MEDS: Tamsulosin HCl 0.4 MG CAP PO SCH (08:52)
[2022-05-01] MEDS: Aspirin 81 mg Enteric Coated Tablet PO SCH (08:52)
[2022-05-01] MEDS: Gabapentin 300 MG CAP PO SCH ×2 (08:52→20:19)
[2022-05-01] MEDS: Acetaminophen 500 MG TAB PO PRN (08:53)
[2022-05-01] MEDS: Lubiprostone 24 MCG CAP PO SCH (09:28)
[2022-05-01] MEDS: DULoxetine 30 MG CAP PO SCH (09:28)
[2022-05-01] MEDS: Sodium Chloride 0.9% 1,000 ML IV SCH ×3 (11:41→22:55)
[2022-05-01] MEDS: Polyethylene Glycol 3350 17 GM Packet PO SCH (20:17)
[2022-05-02] MEDS: Dexamethasone 4 mg/ml Vial SLOW IVP SCH (00:34)
[2022-05-02 06:01] LABS: Anion Gap 12 mmol/L (10-20); BUN (Urea Nitrogen) 23 mg/dL (8.4-25.7); Calc. Creatinine Clearance 154 mL/min (70-130); Carbon Dioxide 24 mmol/L (22-29); Chloride 107 mmol/L (98-107); Estimated GFR 79; Glucose 171 mg/dL (70-105); Potassium 4.2 mmol/L (3.5-5.1); Sodium 139 mmol/L (136-145)
[2022-05-02 06:05] LABS: Calcium 12.3 mg/dL (7.8-10.44)
[2022-05-02] MEDS: Levothyroxine Sodium 50 MCG TAB PO SCH (06:06)
[2022-05-02] MEDS ORDERED: Zoledronic Acid 4 MG in Sodium Chloride 0.9% 100 ML IVPB SCH (07:45)
[2022-05-02] MEDS: Sodium Chloride 0.9% 1,000 ML IV SCH ×2 (09:12→18:19)
[2022-05-02] MEDS: Dexamethasone 4 MG TAB PO SCH ×2 (09:14→17:30)
[2022-05-02] MEDS: Gabapentin 300 MG CAP PO SCH ×2 (09:14→21:39)
[2022-05-02] MEDS: Aspirin 81 mg Enteric Coated Tablet PO SCH (09:14)
[2022-05-02] MEDS: Tamsulosin HCl 0.4 MG CAP PO SCH (09:14)
[2022-05-02] MEDS: HYDROcodone/Acetaminophen 10/325 mg Tablet PO PRN ×3 (09:16→21:44)
[2022-05-02] MEDS: DULoxetine 30 MG CAP PO SCH (09:17)
[2022-05-02] MEDS: Lubiprostone 24 MCG CAP PO SCH (09:18)
[2022-05-02] MEDS: Acetaminophen 500 MG TAB PO PRN (12:26)
[2022-05-02] MEDS: Polyethylene Glycol 3350 17 GM Packet PO SCH (22:26)
[2022-05-03] MEDS: Sodium Chloride 0.9% 1,000 ML IV SCH ×2 (04:24→14:29)
[2022-05-03] MEDS: Levothyroxine Sodium 50 MCG TAB PO SCH (05:16)
[2022-05-03 05:34] LABS: Anion Gap 12 mmol/L (10-20); BUN (Urea Nitrogen) 22 mg/dL (8.4-25.7); Calc. Creatinine Clearance 183 mL/min (70-130); Carbon Dioxide 23 mmol/L (22-29); Chloride 108 mmol/L (98-107); Estimated GFR 98; Glucose 139 mg/dL (70-105); Potassium 4.2 mmol/L (3.5-5.1); Sodium 139 mmol/L (136-145)
[2022-05-03 05:37] LABS: Calcium 12.1 mg/dL (7.8-10.44)
[2022-05-03] MEDS: Gabapentin 300 MG CAP PO SCH ×2 (09:12→21:11)
[2022-05-03] MEDS: Tamsulosin HCl 0.4 MG CAP PO SCH (09:13)
[2022-05-03] MEDS: DULoxetine 30 MG CAP PO SCH (09:13)
[2022-05-03] MEDS: Dexamethasone 4 MG TAB PO SCH ×2 (09:13→17:07)
[2022-05-03] MEDS: Lubiprostone 24 MCG CAP PO SCH (09:13)
[2022-05-03 09:52] LABS: INR-International Normal Ratio 1.1; Prothrombin Time 14.4 sec (12.0-14.7)
[2022-05-03 09:53] LABS: PTT 33.8 sec (22.9-36.1)
[2022-05-03] MEDS: HYDROcodone/Acetaminophen 10/325 mg Tablet PO PRN (18:26)
[2022-05-03] MEDS: Acetaminophen 500 MG TAB PO PRN (21:11)
[2022-05-04] MEDS: HYDROcodone/Acetaminophen 10/325 mg Tablet PO PRN (00:34)
[2022-05-04] MEDS: Sodium Chloride 0.9% 1,000 ML IV SCH ×2 (00:34→16:21)
[2022-05-04] MEDS: Polyethylene Glycol 3350 17 GM Packet PO SCH ×3 (00:40→20:54)
[2022-05-04] MEDS: Levothyroxine Sodium 50 MCG TAB PO SCH (05:54)
[2022-05-04 05:58] LABS: Anion Gap 11 mmol/L (10-20); BUN (Urea Nitrogen) 24 mg/dL (8.4-25.7); Calc. Creatinine Clearance 185 mL/min (70-130); Carbon Dioxide 25 mmol/L (22-29); Chloride 107 mmol/L (98-107); Estimated GFR 98; Glucose 146 mg/dL (70-105); Potassium 4.3 mmol/L (3.5-5.1); Sodium 139 mmol/L (136-145)
[2022-05-04 06:01] LABS: INR-International Normal Ratio 1.2; Prothrombin Time 14.8 sec (12.0-14.7)
[2022-05-04 06:04] LABS: Calcium 12.5 mg/dL (7.8-10.44)
[2022-05-04 06:44] LABS: #Lymphocytes 1.5 thou/uL (1.20-3.40); #Monocytes 1.4 thou/uL (0.11-0.59); #Neutrophils 9.2 thou/uL (1.40-6.50); %Basophils 0.1 % (0.0-1.0); %Eosinophils 0.2 % (0.0-10.0); %Lymphocytes 12.2 % (21.0-51.0); %Monocytes 11.8 % (0.0-10.0); %Neutrophils 75.7 % (42.0-75.0); Hemoglobin 10.2 g/dL (14.0-18.0); Mean Corpuscular Hemoglobin 25.6 pg (27.0-31.0); Mean Corpuscular Volume 88.1 fL (78.0-98.0); Mean Platelet Volume 7.5 fL (7.4-10.4); Platelet Count 338 thou/uL (130-400); Platelet Morphology Comment PLT clumps seen-ADEQ; RBC Distribution Width 13.9 % (11.5-14.5); RBC Morphology Normal; Red Blood Cell (RBC) Count 3.99 mill/uL (4.70-6.10); White Blood Cell (WBC) Count 12.2 thou/uL (4.8-10.8)
[2022-05-04] MEDS: Dexamethasone 4 MG TAB PO SCH ×2 (08:47→16:21)
[2022-05-04] MEDS: Lubiprostone 24 MCG CAP PO SCH (08:47)
[2022-05-04] MEDS: Tamsulosin HCl 0.4 MG CAP PO SCH (08:47)
[2022-05-04] MEDS: DULoxetine 30 MG CAP PO SCH (08:47)
[2022-05-04] MEDS: Gabapentin 300 MG CAP PO SCH ×2 (08:48→20:50)
[2022-05-04] MEDS: Acetaminophen 500 MG TAB PO PRN (23:32)
[2022-05-05 04:06] LABS: SARS-CoV-2 NAA Rapid Test Not Detected (NotDetected)
[2022-05-05] MEDS: Levothyroxine Sodium 50 MCG TAB PO SCH (05:07)
[2022-05-05] MEDS: Sodium Chloride 0.9% 1,000 ML IV SCH ×3 (05:27→21:38)
[2022-05-05 06:05] LABS: #Eosinphils 0.1 thou/uL (0.0-0.7); #Monocytes 1.3 thou/uL (0.11-0.59); #Neutrophils 9.5 thou/uL (1.40-6.50); %Basophils 0.1 % (0.0-1.0); %Eosinophils 0.5 % (0.0-10.0); %Lymphocytes 15.2 % (21.0-51.0); %Monocytes 10.4 % (0.0-10.0); %Neutrophils 73.8 % (42.0-75.0); Hemoglobin 11.1 g/dL (14.0-18.0); Mean Corpuscular HGB CONC 31.2 g/dL (32.0-36.0); Mean Corpuscular Hemoglobin 26.7 pg (27.0-31.0); Mean Corpuscular Volume 85.7 fL (78.0-98.0); Mean Platelet Volume 7.3 fL (7.4-10.4); Platelet Count 360 thou/uL (130-400); Red Blood Cell (RBC) Count 4.15 mill/uL (4.70-6.10); White Blood Cell (WBC) Count 12.9 thou/uL (4.8-10.8)
[2022-05-05 06:19] LABS: Anion Gap 11 mmol/L (10-20); BUN (Urea Nitrogen) 23 mg/dL (8.4-25.7); Calc. Creatinine Clearance 168 mL/min (70-130); Carbon Dioxide 25 mmol/L (22-29); Chloride 105 mmol/L (98-107); Estimated GFR 88; Glucose 152 mg/dL (70-105); Potassium 4.2 mmol/L (3.5-5.1); Sodium 137 mmol/L (136-145)
[2022-05-05] MEDS ORDERED: Midazolam HCl 2 mg/2 ml Vial ONE (09:55)
[2022-05-05] MEDS ORDERED: Fentanyl 100 MCG/2 ML VIAL ONE (09:55)
[2022-05-05] MEDS ORDERED: Sodium Bicarbonate 2.5 MEQ/5 ML VIAL ONE (09:55)
[2022-05-05] MEDS: Lubiprostone 24 MCG CAP PO SCH (12:26)
[2022-05-05] MEDS: Tamsulosin HCl 0.4 MG CAP PO SCH (12:26)
[2022-05-05] MEDS: Gabapentin 300 MG CAP PO SCH ×2 (12:26→20:12)
[2022-05-05] MEDS: Dexamethasone 4 MG TAB PO SCH ×2 (12:26→18:36)
[2022-05-05] MEDS: DULoxetine 30 MG CAP PO SCH (12:27)
[2022-05-05] MEDS ORDERED: Zoledronic Acid 4 MG in Sodium Chloride 0.9% 100 ML IVPB SCH (17:00)
[2022-05-05] MEDS: Polyethylene Glycol 3350 17 GM Packet PO SCH (20:14)
[2022-05-05] MEDS: Acetaminophen 500 MG TAB PO PRN (23:46)
[2022-05-06] MEDS: Sodium Chloride 0.9% 1,000 ML IV SCH ×2 (03:25→13:20)
[2022-05-06] MEDS: Levothyroxine Sodium 50 MCG TAB PO SCH (04:40)
[2022-05-06 05:07] LABS: #Eosinphils 0.2 thou/uL (0.0-0.7); #Lymphocytes 0.9 thou/uL (1.20-3.40); #Neutrophils 11.2 thou/uL (1.40-6.50); %Basophils 0.4 % (0.0-1.0); %Eosinophils 1.2 % (0.0-10.0); %Monocytes 7.4 % (0.0-10.0); %Neutrophils 84.1 % (42.0-75.0); Hemoglobin 10.9 g/dL (14.0-18.0); Mean Corpuscular HGB CONC 30.4 g/dL (32.0-36.0); Mean Corpuscular Hemoglobin 26.5 pg (27.0-31.0); Mean Corpuscular Volume 87.1 fL (78.0-98.0); Mean Platelet Volume 6.9 fL (7.4-10.4); Platelet Count 502 thou/uL (130-400); RBC Distribution Width 14.5 % (11.5-14.5); Red Blood Cell (RBC) Count 4.14 mill/uL (4.70-6.10); White Blood Cell (WBC) Count 13.3 thou/uL (4.8-10.8)
[2022-05-06 05:34] LABS: ALT (SGPT) 75 U/L (8-55); AST (SGOT) 50 U/L (5-34); Albumin 3.2 g/dL (3.5-5.0); Alkaline Phosphatase 89 U/L (40-110); Anion Gap 13 mmol/L (10-20); BUN (Urea Nitrogen) 27 mg/dL (8.4-25.7); Bilirubin, Total 0.2 mg/dL (0.2-1.2); Calc. Creatinine Clearance 151 mL/min (70-130); Calcium 12.3 mg/dL (7.8-10.44); Carbon Dioxide 23 mmol/L (22-29); Chloride 105 mmol/L (98-107); Estimated GFR 78; Globulin 4.2 g/dL (2.4-3.5); Glucose 141 mg/dL (70-105); Potassium 5.2 mmol/L (3.5-5.1); Protein, Total 7.4 g/dL (6.0-8.3); Sodium 136 mmol/L (136-145)
[2022-05-06] MEDS: Dexamethasone 4 MG TAB PO SCH ×2 (08:09→16:55)
[2022-05-06] MEDS: Gabapentin 300 MG CAP PO SCH ×2 (08:09→20:41)
[2022-05-06] MEDS: Lubiprostone 24 MCG CAP PO SCH (08:09)
[2022-05-06] MEDS: DULoxetine 30 MG CAP PO SCH (08:09)
[2022-05-06] MEDS: Tamsulosin HCl 0.4 MG CAP PO SCH (08:10)
[2022-05-06] MEDS: HYDROcodone/Acetaminophen 10/325 mg Tablet PO PRN (13:18)
[2022-05-06] MEDS: Polyethylene Glycol 3350 17 GM Packet PO SCH (20:42)
[2022-05-06] MEDS ORDERED: Ibuprofen 800 MG TAB PO SCH (21:28)
[2022-05-07] MEDS: Sodium Chloride 0.9% 1,000 ML IV SCH ×3 (00:21→21:12)
[2022-05-07 04:52] LABS: #Eosinphils 0.1 thou/uL (0.0-0.7); #Lymphocytes 0.9 thou/uL (1.20-3.40); #Monocytes 0.9 thou/uL (0.11-0.59); #Neutrophils 7.4 thou/uL (1.40-6.50); %Basophils 0.1 % (0.0-1.0); %Eosinophils 0.7 % (0.0-10.0); %Lymphocytes 9.9 % (21.0-51.0); %Monocytes 9.7 % (0.0-10.0); %Neutrophils 79.7 % (42.0-75.0); Hemoglobin 10.6 g/dL (14.0-18.0); Mean Corpuscular HGB CONC 30.7 g/dL (32.0-36.0); Mean Corpuscular Hemoglobin 26.6 pg (27.0-31.0); Mean Corpuscular Volume 86.5 fL (78.0-98.0); Mean Platelet Volume 7.3 fL (7.4-10.4); Platelet Count 216 thou/uL (130-400); RBC Distribution Width 14.2 % (11.5-14.5); Red Blood Cell (RBC) Count 3.98 mill/uL (4.70-6.10); White Blood Cell (WBC) Count 9.3 thou/uL (4.8-10.8)
[2022-05-07] MEDS: Levothyroxine Sodium 50 MCG TAB PO SCH (05:49)
[2022-05-07 06:09] LABS: ALT (SGPT) 60 U/L (8-55); AST (SGOT) 22 U/L (5-34); Albumin 3.2 g/dL (3.5-5.0); Alkaline Phosphatase 96 U/L (40-110); Anion Gap 14 mmol/L (10-20); BUN (Urea Nitrogen) 27 mg/dL (8.4-25.7); Bilirubin, Total 0.3 mg/dL (0.2-1.2); Calc. Creatinine Clearance 151 mL/min (70-130); Calcium 11.2 mg/dL (7.8-10.44); Carbon Dioxide 22 mmol/L (22-29); Chloride 104 mmol/L (98-107); Estimated GFR 78; Globulin 3.4 g/dL (2.4-3.5); Glucose 151 mg/dL (70-105); Potassium 4.4 mmol/L (3.5-5.1); Protein, Total 6.6 g/dL (6.0-8.3); Sodium 136 mmol/L (136-145)
[2022-05-07] MEDS: Lubiprostone 24 MCG CAP PO SCH (10:19)
[2022-05-07] MEDS: Dexamethasone 4 MG TAB PO SCH ×2 (10:19→16:24)
[2022-05-07] MEDS: Gabapentin 300 MG CAP PO SCH ×2 (10:20→21:10)
[2022-05-07] MEDS: DULoxetine 30 MG CAP PO SCH (10:20)
[2022-05-07] MEDS: Tamsulosin HCl 0.4 MG CAP PO SCH (10:22)
[2022-05-07] MEDS: Ibuprofen 100 MG/5 ML UDCUP PO PRN (16:24)
[2022-05-07] MEDS: Methocarbamol 500 MG TAB PO SCH (21:10)
[2022-05-07] MEDS: Polyethylene Glycol 3350 17 GM Packet PO SCH (21:12)
[2022-05-08] MEDS: Levothyroxine Sodium 50 MCG TAB PO SCH (05:21)
[2022-05-08] MEDS: Sodium Chloride 0.9% 1,000 ML IV SCH ×2 (05:21→16:57)
[2022-05-08 07:17] LABS: #Eosinphils 0.1 thou/uL (0.0-0.7); #Lymphocytes 1.4 thou/uL (1.20-3.40); #Monocytes 1.5 thou/uL (0.11-0.59); %Basophils 0.2 % (0.0-1.0); %Eosinophils 0.4 % (0.0-10.0); %Monocytes 10.5 % (0.0-10.0); %Neutrophils 78.9 % (42.0-75.0); Hemoglobin 11.2 g/dL (14.0-18.0); Mean Corpuscular HGB CONC 31.1 g/dL (32.0-36.0); Mean Corpuscular Hemoglobin 26.8 pg (27.0-31.0); Mean Corpuscular Volume 86.3 fL (78.0-98.0); Mean Platelet Volume 6.8 fL (7.4-10.4); Platelet Count 440 thou/uL (130-400); RBC Distribution Width 14.4 % (11.5-14.5); Red Blood Cell (RBC) Count 4.17 mill/uL (4.70-6.10)
[2022-05-08] MEDS: DULoxetine 30 MG CAP PO SCH (07:26)
[2022-05-08] MEDS: Lubiprostone 24 MCG CAP PO SCH (07:26)
[2022-05-08] MEDS: Dexamethasone 4 MG TAB PO SCH ×2 (07:26→16:57)
[2022-05-08] MEDS: Methocarbamol 500 MG TAB PO SCH ×2 (07:27→20:53)
[2022-05-08] MEDS: Tamsulosin HCl 0.4 MG CAP PO SCH (07:27)
[2022-05-08] MEDS: Gabapentin 300 MG CAP PO SCH ×2 (07:31→20:52)
[2022-05-08 07:35] LABS: Anion Gap 13 mmol/L (10-20); BUN (Urea Nitrogen) 25 mg/dL (8.4-25.7); Calc. Creatinine Clearance 194 mL/min (70-130); Calcium 10.7 mg/dL (7.8-10.44); Carbon Dioxide 22 mmol/L (22-29); Chloride 107 mmol/L (98-107); Estimated GFR 99; Glucose 141 mg/dL (70-105); Potassium 4.6 mmol/L (3.5-5.1); Sodium 137 mmol/L (136-145)
[2022-05-08] MEDS: Polyethylene Glycol 3350 17 GM Packet PO SCH (20:54)
[2022-05-09] MEDS: Sodium Chloride 0.9% 1,000 ML IV SCH ×3 (02:34→23:23)
[2022-05-09] MEDS: Levothyroxine Sodium 50 MCG TAB PO SCH (06:13)
[2022-05-09] MEDS: Lubiprostone 24 MCG CAP PO SCH (07:44)
[2022-05-09] MEDS: Methocarbamol 500 MG TAB PO SCH ×2 (07:44→21:03)
[2022-05-09] MEDS: Dexamethasone 4 MG TAB PO SCH ×2 (07:45→17:01)
[2022-05-09] MEDS: Tamsulosin HCl 0.4 MG CAP PO SCH (07:45)
[2022-05-09] MEDS: DULoxetine 30 MG CAP PO SCH (07:45)
[2022-05-09] MEDS: Gabapentin 300 MG CAP PO SCH ×2 (07:45→21:03)
[2022-05-09] MEDS: HYDROcodone/Acetaminophen 10/325 mg Tablet PO PRN (13:38)
[2022-05-09] MEDS: Polyethylene Glycol 3350 17 GM Packet PO SCH (21:04)
[2022-05-10] MEDS: Levothyroxine Sodium 50 MCG TAB PO SCH (05:52)
[2022-05-10 07:12] LABS: Anion Gap 11 mmol/L (10-20); BUN (Urea Nitrogen) 21 mg/dL (8.4-25.7); Calc. Creatinine Clearance 198 mL/min (70-130); Carbon Dioxide 28 mmol/L (22-29); Chloride 106 mmol/L (98-107); Potassium 4.7 mmol/L (3.5-5.1); Sodium 140 mmol/L (136-145)
[2022-05-10 07:13] LABS: ALT (SGPT) 38 U/L (8-55); AST (SGOT) 14 U/L (5-34); Albumin 3.3 g/dL (3.5-5.0); Alkaline Phosphatase 94 U/L (40-110); Bilirubin, Total 0.3 mg/dL (0.2-1.2); Calcium 10.3 mg/dL (7.8-10.44); Estimated GFR 100; Globulin 3.4 g/dL (2.4-3.5); Glucose 103 mg/dL (70-105); Protein, Total 6.7 g/dL (6.0-8.3)
[2022-05-10 08:14] LABS: Hemoglobin A1c 5.4 % (4.0-6.0)
[2022-05-10 08:19] LABS: #Lymphocytes 1.4 thou/uL (1.20-3.40); #Monocytes 1.6 thou/uL (0.11-0.59); %Basophils 0.1 % (0.0-1.0); %Eosinophils 0.3 % (0.0-10.0); %Monocytes 11.3 % (0.0-10.0); %Neutrophils 78.3 % (42.0-75.0); Hemoglobin 10.8 g/dL (14.0-18.0); MDiff Complete? YES; Mean Corpuscular HGB CONC 30.2 g/dL (32.0-36.0); Mean Corpuscular Hemoglobin 26.2 pg (27.0-31.0); Mean Corpuscular Volume 86.7 fL (78.0-98.0); Mean Platelet Volume 7.2 fL (7.4-10.4); Platelet Clumps MARKED; Platelet Morphology Comment PLT clumps seen-ADEQ; Polychromasia SLIGHT = 2-3 cells (100X) (0-2/hpf); RBC Distribution Width 14.4 % (11.5-14.5); Red Blood Cell (RBC) Count 4.14 mill/uL (4.70-6.10); White Blood Cell (WBC) Count 14.1 thou/uL (4.8-10.8)
[2022-05-10] MEDS: Tamsulosin HCl 0.4 MG CAP PO SCH (09:10)
[2022-05-10] MEDS: Methocarbamol 500 MG TAB PO SCH ×2 (09:10→19:42)
[2022-05-10] MEDS: Lubiprostone 24 MCG CAP PO SCH (09:10)
[2022-05-10] MEDS: Gabapentin 300 MG CAP PO SCH ×2 (09:10→19:42)
[2022-05-10] MEDS: Dexamethasone 4 MG TAB PO SCH ×2 (09:10→16:45)
[2022-05-10] MEDS: DULoxetine 30 MG CAP PO SCH (09:10)
[2022-05-10] MEDS: Sodium Chloride 0.9% 1,000 ML IV SCH ×3 (12:07→23:27)
[2022-05-10] MEDS: HYDROcodone/Acetaminophen 10/325 mg Tablet PO PRN (16:45)
[2022-05-10] MEDS: Polyethylene Glycol 3350 17 GM Packet PO SCH (19:43)
[2022-05-11] MEDS: Acetaminophen 500 MG TAB PO PRN (03:39)
[2022-05-11 05:15] LABS: #Eosinphils 0.1 thou/uL (0.0-0.7); #Lymphocytes 1.4 thou/uL (1.20-3.40); #Monocytes 1.6 thou/uL (0.11-0.59); #Neutrophils 11.3 thou/uL (1.40-6.50); %Basophils 0.1 % (0.0-1.0); %Eosinophils 0.4 % (0.0-10.0); %Monocytes 10.9 % (0.0-10.0); %Neutrophils 78.7 % (42.0-75.0); Hemoglobin 10.1 g/dL (14.0-18.0); Mean Corpuscular HGB CONC 30.3 g/dL (32.0-36.0); Mean Corpuscular Hemoglobin 25.8 pg (27.0-31.0); Mean Corpuscular Volume 85.2 fL (78.0-98.0); Mean Platelet Volume 7.4 fL (7.4-10.4); Platelet Count 222 thou/uL (130-400); RBC Distribution Width 14.6 % (11.5-14.5); Red Blood Cell (RBC) Count 3.92 mill/uL (4.70-6.10); White Blood Cell (WBC) Count 14.4 thou/uL (4.8-10.8)
[2022-05-11 05:34] LABS: ALT (SGPT) 38 U/L (8-55); AST (SGOT) 15 U/L (5-34); Albumin 3.2 g/dL (3.5-5.0); Alkaline Phosphatase 94 U/L (40-110); Anion Gap 14 mmol/L (10-20); BUN (Urea Nitrogen) 25 mg/dL (8.4-25.7); Bilirubin, Direct 0.2 mg/dL (0.1-0.3); Bilirubin, Total 0.2 mg/dL (0.2-1.2); Calc. Creatinine Clearance 158 mL/min (70-130); Calcium 9.9 mg/dL (7.8-10.44); Carbon Dioxide 23 mmol/L (22-29); Cardiac Risk 3.3 (Less than 4.5); Chloride 106 mmol/L (98-107); Cholesterol 112 mg/dl (< 200 Desired); Estimated GFR 82; Glucose 159 mg/dL (70-105); HDL Cholesterol 34 mg/dL (>60 Neg Risk); Magnesium 2.2 mg/dL (1.6-2.6); Potassium 4.8 mmol/L (3.5-5.1); Protein, Total 6.4 g/dL (6.0-8.3); Sodium 138 mmol/L (136-145)
[2022-05-11] MEDS: Levothyroxine Sodium 50 MCG TAB PO SCH (05:44)
[2022-05-11 05:52] LABS: LDL Cholesterol, Calculated 62 mg/dL; Triglycerides 70 mg/dL (Less than 150)
[2022-05-11] MEDS: Gabapentin 300 MG CAP PO SCH ×2 (08:35→21:02)
[2022-05-11] MEDS: DULoxetine 30 MG CAP PO SCH (08:35)
[2022-05-11] MEDS: Dexamethasone 4 MG TAB PO SCH ×2 (08:35→18:29)
[2022-05-11] MEDS: Lubiprostone 24 MCG CAP PO SCH (08:35)
[2022-05-11] MEDS: Methocarbamol 500 MG TAB PO SCH ×2 (08:36→21:02)
[2022-05-11] MEDS: Tamsulosin HCl 0.4 MG CAP PO SCH (08:37)
[2022-05-11] MEDS: Sodium Chloride 0.9% 1,000 ML IV SCH ×3 (12:41→18:31)
[2022-05-11] MEDS: Ibuprofen 100 MG/5 ML UDCUP PO PRN (20:58)
[2022-05-11] MEDS: Apixaban 5 MG TAB PO SCH (21:01)
[2022-05-11] MEDS: Polyethylene Glycol 3350 17 GM Packet PO SCH (21:04)
[2022-05-12] MEDS: Levothyroxine Sodium 50 MCG TAB PO SCH (04:19)
[2022-05-12 05:07] LABS: #Monocytes 0.9 thou/uL (0.11-0.59); %Basophils 0.1 % (0.0-1.0); %Eosinophils 0.3 % (0.0-10.0); %Lymphocytes 6.5 % (21.0-51.0); %Monocytes 6.3 % (0.0-10.0); %Neutrophils 86.8 % (42.0-75.0); Hemoglobin 11.1 g/dL (14.0-18.0); Mean Corpuscular HGB CONC 30.2 g/dL (32.0-36.0); Mean Corpuscular Volume 86.1 fL (78.0-98.0); Mean Platelet Volume 6.8 fL (7.4-10.4); Platelet Count 403 thou/uL (130-400); RBC Distribution Width 14.7 % (11.5-14.5); Red Blood Cell (RBC) Count 4.28 mill/uL (4.70-6.10); White Blood Cell (WBC) Count 14.9 thou/uL (4.8-10.8)
[2022-05-12 05:38] LABS: Anion Gap 16 mmol/L (10-20); BUN (Urea Nitrogen) 21 mg/dL (8.4-25.7); Calc. Creatinine Clearance 147 mL/min (70-130); Calcium 10.2 mg/dL (7.8-10.44); Carbon Dioxide 21 mmol/L (22-29); Chloride 106 mmol/L (98-107); Estimated GFR 75; Glucose 190 mg/dL (70-105); Magnesium 2.1 mg/dL (1.6-2.6); Potassium 4.9 mmol/L (3.5-5.1); Sodium 138 mmol/L (136-145)
[2022-05-12] MEDS: Sodium Chloride 0.9% 1,000 ML IV SCH ×4 (07:10→21:09)
[2022-05-12] MEDS: Methocarbamol 500 MG TAB PO SCH ×2 (09:26→20:58)
[2022-05-12] MEDS: Dexamethasone 4 MG TAB PO SCH ×2 (09:26→17:46)
[2022-05-12] MEDS: Lubiprostone 24 MCG CAP PO SCH (09:26)
[2022-05-12] MEDS: Gabapentin 300 MG CAP PO SCH ×2 (09:27→20:57)
[2022-05-12] MEDS: DULoxetine 30 MG CAP PO SCH (09:27)
[2022-05-12] MEDS: Tamsulosin HCl 0.4 MG CAP PO SCH (09:28)
[2022-05-12] MEDS: Apixaban 5 MG TAB PO SCH ×2 (09:28→20:59)
[2022-05-12] MEDS: Polyethylene Glycol 3350 17 GM Packet PO SCH (21:00)
[2022-05-13] MEDS: Levothyroxine Sodium 50 MCG TAB PO SCH (04:35)
[2022-05-13] MEDS: Sodium Chloride 0.9% 1,000 ML IV SCH (04:35)
[2022-05-13 05:24] LABS: #Eosinphils 0.1 thou/uL (0.0-0.7); #Lymphocytes 1.2 thou/uL (1.20-3.40); #Monocytes 1.4 thou/uL (0.11-0.59); #Neutrophils 14.6 thou/uL (1.40-6.50); %Basophils 0.1 % (0.0-1.0); %Eosinophils 0.4 % (0.0-10.0); %Lymphocytes 6.9 % (21.0-51.0); %Monocytes 8.1 % (0.0-10.0); %Neutrophils 84.4 % (42.0-75.0); Mean Corpuscular HGB CONC 30.6 g/dL (32.0-36.0); Mean Corpuscular Volume 85.1 fL (78.0-98.0); Mean Platelet Volume 7.3 fL (7.4-10.4); Platelet Count 324 thou/uL (130-400); RBC Distribution Width 14.8 % (11.5-14.5); Red Blood Cell (RBC) Count 4.21 mill/uL (4.70-6.10); White Blood Cell (WBC) Count 17.2 thou/uL (4.8-10.8)
[2022-05-13 06:02] LABS: Anion Gap 17 mmol/L (10-20); BUN (Urea Nitrogen) 20 mg/dL (8.4-25.7); Calc. Creatinine Clearance 203 mL/min (70-130); Calcium 10.7 mg/dL (7.8-10.44); Carbon Dioxide 18 mmol/L (22-29); Chloride 105 mmol/L (98-107); Estimated GFR 101; Glucose 171 mg/dL (70-105); Magnesium 1.9 mg/dL (1.6-2.6); Potassium 4.8 mmol/L (3.5-5.1); Sodium 135 mmol/L (136-145)
[2022-05-13] MEDS: Gabapentin 300 MG CAP PO SCH ×3 (08:23→22:23)
[2022-05-13] MEDS: DULoxetine 30 MG CAP PO SCH (08:23)
[2022-05-13] MEDS: Lubiprostone 24 MCG CAP PO SCH (08:23)
[2022-05-13] MEDS: Methocarbamol 500 MG TAB PO SCH ×2 (08:24→21:34)
[2022-05-13] MEDS: Tamsulosin HCl 0.4 MG CAP PO SCH (08:24)
[2022-05-13] MEDS: Apixaban 5 MG TAB PO SCH ×2 (08:25→21:35)
[2022-05-13] MEDS: Dexamethasone 4 MG TAB PO SCH ×2 (08:25→18:07)
[2022-05-13] MEDS: Ibuprofen 100 MG/5 ML UDCUP PO PRN (09:49)
[2022-05-13] MEDS: Polyethylene Glycol 3350 17 GM Packet PO SCH (21:14)
[2022-05-14] MEDS: Sodium Chloride 0.9% 1,000 ML IV SCH ×3 (03:30→15:47)
[2022-05-14] MEDS: Levothyroxine Sodium 50 MCG TAB PO SCH (06:24)
[2022-05-14 08:30] LABS: #Lymphocytes 1.1 thou/uL (1.20-3.40); #Monocytes 1.4 thou/uL (0.11-0.59); #Neutrophils 15.9 thou/uL (1.40-6.50); %Basophils 0.1 % (0.0-1.0); %Eosinophils 0.3 % (0.0-10.0); %Lymphocytes 5.9 % (21.0-51.0); %Monocytes 7.7 % (0.0-10.0); Hemoglobin 11.4 g/dL (14.0-18.0); Mean Corpuscular HGB CONC 30.8 g/dL (32.0-36.0); Mean Corpuscular Hemoglobin 26.5 pg (27.0-31.0); Mean Platelet Volume 7.1 fL (7.4-10.4); Platelet Count 377 thou/uL (130-400); RBC Distribution Width 14.7 % (11.5-14.5); Red Blood Cell (RBC) Count 4.31 mill/uL (4.70-6.10); White Blood Cell (WBC) Count 18.4 thou/uL (4.8-10.8)
[2022-05-14 08:48] LABS: Anion Gap 17 mmol/L (10-20); BUN (Urea Nitrogen) 19 mg/dL (8.4-25.7); Calc. Creatinine Clearance 217 mL/min (70-130); Calcium 11.7 mg/dL (7.8-10.44); Carbon Dioxide 19 mmol/L (22-29); Chloride 103 mmol/L (98-107); Estimated GFR 103; Glucose 146 mg/dL (70-105); Magnesium 1.9 mg/dL (1.6-2.6); Potassium 4.6 mmol/L (3.5-5.1); Sodium 134 mmol/L (136-145)
[2022-05-14] MEDS: Dexamethasone 4 MG TAB PO SCH ×2 (08:56→17:02)
[2022-05-14] MEDS: DULoxetine 30 MG CAP PO SCH (08:56)
[2022-05-14] MEDS: Apixaban 5 MG TAB PO SCH ×2 (08:56→20:41)
[2022-05-14] MEDS: Lubiprostone 24 MCG CAP PO SCH (08:56)
[2022-05-14] MEDS: Gabapentin 300 MG CAP PO SCH ×2 (08:56→20:41)
[2022-05-14] MEDS: Methocarbamol 500 MG TAB PO SCH ×2 (08:58→20:42)
[2022-05-14] MEDS: Tamsulosin HCl 0.4 MG CAP PO SCH (08:59)
[2022-05-14 11:31] LABS: ALT (SGPT) 35 U/L (8-55); AST (SGOT) 12 U/L (5-34); Albumin 3.4 g/dL (3.5-5.0); Alkaline Phosphatase 99 U/L (40-110); Bilirubin, Direct 0.2 mg/dL (0.1-0.3); Bilirubin, Total 0.5 mg/dL (0.2-1.2); Protein, Total 6.7 g/dL (6.0-8.3)
[2022-05-14] MEDS: HYDROcodone/Acetaminophen 10/325 mg Tablet PO PRN (12:41)
[2022-05-14] MEDS ORDERED: Zoledronic Acid 4 MG in Sodium Chloride 0.9% 100 ML IVPB SCH (13:30)
[2022-05-14] MEDS: Polyethylene Glycol 3350 17 GM Packet PO SCH (20:41)
[2022-05-15] MEDS: Sodium Chloride 0.9% 1,000 ML IV SCH ×2 (02:36→02:37)
[2022-05-15 05:27] LABS: #Lymphocytes 1.2 thou/uL (1.20-3.40); #Monocytes 1.6 thou/uL (0.11-0.59); #Neutrophils 15.6 thou/uL (1.40-6.50); %Eosinophils 0.2 % (0.0-10.0); %Lymphocytes 6.5 % (21.0-51.0); %Monocytes 8.4 % (0.0-10.0); %Neutrophils 84.9 % (42.0-75.0); Hemoglobin 11.4 g/dL (14.0-18.0); Mean Corpuscular HGB CONC 29.9 g/dL (32.0-36.0); Mean Corpuscular Hemoglobin 25.8 pg (27.0-31.0); Mean Corpuscular Volume 86.2 fL (78.0-98.0); Platelet Count 376 thou/uL (130-400); RBC Distribution Width 15.1 % (11.5-14.5); Red Blood Cell (RBC) Count 4.44 mill/uL (4.70-6.10); White Blood Cell (WBC) Count 18.3 thou/uL (4.8-10.8)
[2022-05-15 05:41] LABS: ALT (SGPT) 30 U/L (8-55); AST (SGOT) 12 U/L (5-34); Albumin 3.3 g/dL (3.5-5.0); Alkaline Phosphatase 101 U/L (40-110); Anion Gap 17 mmol/L (10-20); BUN (Urea Nitrogen) 23 mg/dL (8.4-25.7); Bilirubin, Direct 0.2 mg/dL (0.1-0.3); Bilirubin, Total 0.3 mg/dL (0.2-1.2); Calc. Creatinine Clearance 177 mL/min (70-130); Calcium 10.8 mg/dL (7.8-10.44); Carbon Dioxide 19 mmol/L (22-29); Chloride 105 mmol/L (98-107); Estimated GFR 94; Glucose 176 mg/dL (70-105); Potassium 4.5 mmol/L (3.5-5.1); Protein, Total 6.5 g/dL (6.0-8.3); Sodium 136 mmol/L (136-145)
[2022-05-15] MEDS: Levothyroxine Sodium 50 MCG TAB PO SCH (06:37)
[2022-05-15] MEDS: Lubiprostone 24 MCG CAP PO SCH (08:54)
[2022-05-15] MEDS: Methocarbamol 500 MG TAB PO SCH ×2 (08:54→21:00)
[2022-05-15] MEDS: DULoxetine 30 MG CAP PO SCH (08:54)
[2022-05-15] MEDS: Tamsulosin HCl 0.4 MG CAP PO SCH ×2 (08:54→08:55)
[2022-05-15] MEDS: Dexamethasone 4 MG TAB PO SCH ×2 (08:54→17:49)
[2022-05-15] MEDS: Apixaban 5 MG TAB PO SCH ×2 (08:55→20:58)
[2022-05-15] MEDS: Gabapentin 300 MG CAP PO SCH ×2 (08:55→20:59)
[2022-05-15] MEDS: HYDROcodone/Acetaminophen 10/325 mg Tablet PO PRN (13:50)
[2022-05-15] MEDS: Polyethylene Glycol 3350 17 GM Packet PO SCH (21:01)
[2022-05-16] MEDS: Levothyroxine Sodium 50 MCG TAB PO SCH (05:01)
[2022-05-16] MEDS: Tamsulosin HCl 0.4 MG CAP PO SCH (08:48)
[2022-05-16] MEDS: Apixaban 5 MG TAB PO SCH ×2 (08:48→21:36)
[2022-05-16] MEDS: Dexamethasone 4 MG TAB PO SCH ×2 (08:48→16:55)
[2022-05-16] MEDS: Lubiprostone 24 MCG CAP PO SCH (08:49)
[2022-05-16] MEDS: Gabapentin 300 MG CAP PO SCH ×2 (08:49→21:36)
[2022-05-16] MEDS: Methocarbamol 500 MG TAB PO SCH ×2 (08:49→21:36)
[2022-05-16] MEDS: DULoxetine 30 MG CAP PO SCH (08:49)
[2022-05-16 09:30] LABS: #Basophils 0.1 thou/uL (0.0-0.2); #Lymphocytes 0.9 thou/uL (1.20-3.40); #Monocytes 1.3 thou/uL (0.11-0.59); %Basophils 0.4 % (0.0-1.0); %Eosinophils 0.3 % (0.0-10.0); %Lymphocytes 6.6 % (21.0-51.0); %Neutrophils 83.8 % (42.0-75.0); Hemoglobin 11.5 g/dL (14.0-18.0); Mean Corpuscular HGB CONC 30.8 g/dL (32.0-36.0); Mean Corpuscular Hemoglobin 26.6 pg (27.0-31.0); Mean Corpuscular Volume 86.1 fL (78.0-98.0); Mean Platelet Volume 7.2 fL (7.4-10.4); Platelet Count 294 thou/uL (130-400); Red Blood Cell (RBC) Count 4.32 mill/uL (4.70-6.10); White Blood Cell (WBC) Count 14.3 thou/uL (4.8-10.8)
[2022-05-16 09:46] LABS: Anion Gap 15 mmol/L (10-20); BUN (Urea Nitrogen) 21 mg/dL (8.4-25.7); Calc. Creatinine Clearance 226 mL/min (70-130); Calcium 10.6 mg/dL (7.8-10.44); Carbon Dioxide 21 mmol/L (22-29); Chloride 103 mmol/L (98-107); Estimated GFR 104; Glucose 183 mg/dL (70-105); Magnesium 1.9 mg/dL (1.6-2.6); Potassium 4.7 mmol/L (3.5-5.1); Sodium 134 mmol/L (136-145)
[2022-05-16] MEDS: Polyethylene Glycol 3350 17 GM Packet PO SCH (21:37)
[2022-05-17 05:09] LABS: #Lymphocytes 0.9 thou/uL (1.20-3.40); #Monocytes 1.4 thou/uL (0.11-0.59); %Basophils 0.1 % (0.0-1.0); %Eosinophils 0.3 % (0.0-10.0); %Monocytes 9.2 % (0.0-10.0); %Neutrophils 84.5 % (42.0-75.0); Hemoglobin 11.7 g/dL (14.0-18.0); Mean Corpuscular Volume 86.6 fL (78.0-98.0); Mean Platelet Volume 7.2 fL (7.4-10.4); Platelet Count 344 thou/uL (130-400); RBC Distribution Width 14.9 % (11.5-14.5); Red Blood Cell (RBC) Count 4.52 mill/uL (4.70-6.10); White Blood Cell (WBC) Count 15.4 thou/uL (4.8-10.8)
[2022-05-17 05:18] LABS: ALT (SGPT) 33 U/L (8-55); AST (SGOT) 10 U/L (5-34); Albumin 3.4 g/dL (3.5-5.0); Alkaline Phosphatase 104 U/L (40-110); Anion Gap 15 mmol/L (10-20); Bilirubin, Total 0.3 mg/dL (0.2-1.2); Calc. Creatinine Clearance 203 mL/min (70-130); Calcium 10.9 mg/dL (7.8-10.44); Carbon Dioxide 20 mmol/L (22-29); Chloride 103 mmol/L (98-107); Estimated GFR 101; Globulin 3.3 g/dL (2.4-3.5); Glucose 202 mg/dL (70-105); Magnesium 2.1 mg/dL (1.6-2.6); Potassium 4.6 mmol/L (3.5-5.1); Protein, Total 6.7 g/dL (6.0-8.3); Sodium 133 mmol/L (136-145)
[2022-05-17 05:32] LABS: BUN (Urea Nitrogen) 18 mg/dL (8.4-25.7)
[2022-05-17] MEDS: Levothyroxine Sodium 50 MCG TAB PO SCH (05:51)
[2022-05-17] MEDS: Tamsulosin HCl 0.4 MG CAP PO SCH (08:42)
[2022-05-17] MEDS: Apixaban 5 MG TAB PO SCH ×2 (08:42→20:12)
[2022-05-17] MEDS: Dexamethasone 4 MG TAB PO SCH ×2 (08:42→17:45)
[2022-05-17] MEDS: Lubiprostone 24 MCG CAP PO SCH (08:42)
[2022-05-17] MEDS: DULoxetine 30 MG CAP PO SCH (08:42)
[2022-05-17] MEDS: Methocarbamol 500 MG TAB PO SCH ×2 (08:43→20:12)
[2022-05-17] MEDS: Gabapentin 300 MG CAP PO SCH ×2 (08:43→20:12)
[2022-05-17 10:38] LABS: Reference Lab Name LABCORP
[2022-05-17] MEDS: HYDROcodone/Acetaminophen 10/325 mg Tablet PO PRN (14:47)
[2022-05-17] MEDS: Polyethylene Glycol 3350 17 GM Packet PO SCH (20:13)
[2022-05-18 05:04] LABS: #Lymphocytes 0.9 thou/uL (1.20-3.40); #Monocytes 1.6 thou/uL (0.11-0.59); #Neutrophils 12.8 thou/uL (1.40-6.50); %Eosinophils 0.2 % (0.0-10.0); %Monocytes 10.3 % (0.0-10.0); %Neutrophils 83.4 % (42.0-75.0); Hemoglobin 11.8 g/dL (14.0-18.0); Mean Corpuscular HGB CONC 29.9 g/dL (32.0-36.0); Mean Corpuscular Hemoglobin 26.3 pg (27.0-31.0); Mean Corpuscular Volume 87.7 fL (78.0-98.0); Mean Platelet Volume 7.2 fL (7.4-10.4); Platelet Count 314 thou/uL (130-400); White Blood Cell (WBC) Count 15.3 thou/uL (4.8-10.8)
[2022-05-18 05:17] LABS: ALT (SGPT) 40 U/L (8-55); AST (SGOT) 14 U/L (5-34); Albumin 3.3 g/dL (3.5-5.0); Alkaline Phosphatase 104 U/L (40-110); Anion Gap 14 mmol/L (10-20); BUN (Urea Nitrogen) 20 mg/dL (8.4-25.7); Bilirubin, Total 0.3 mg/dL (0.2-1.2); Calc. Creatinine Clearance 214 mL/min (70-130); Calcium 10.5 mg/dL (7.8-10.44); Carbon Dioxide 21 mmol/L (22-29); Chloride 103 mmol/L (98-107); Estimated GFR 102; Globulin 3.4 g/dL (2.4-3.5); Glucose 169 mg/dL (70-105); Potassium 4.9 mmol/L (3.5-5.1); Protein, Total 6.7 g/dL (6.0-8.3); Sodium 133 mmol/L (136-145)
[2022-05-18] MEDS: Levothyroxine Sodium 50 MCG TAB PO SCH (06:13)
[2022-05-18] MEDS: Lubiprostone 24 MCG CAP PO SCH (08:15)
[2022-05-18] MEDS: Tamsulosin HCl 0.4 MG CAP PO SCH (08:16)
[2022-05-18] MEDS: DULoxetine 30 MG CAP PO SCH (08:16)
[2022-05-18] MEDS: Dexamethasone 4 MG TAB PO SCH ×2 (08:16→17:12)
[2022-05-18] MEDS: Methocarbamol 500 MG TAB PO SCH ×2 (08:18→20:19)
[2022-05-18] MEDS: Apixaban 5 MG TAB PO SCH ×2 (08:18→20:18)
[2022-05-18] MEDS: Gabapentin 300 MG CAP PO SCH ×2 (08:19→20:19)
[2022-05-18] MEDS: Polyethylene Glycol 3350 17 GM Packet PO SCH (20:13)
[2022-05-19] MEDS: Levothyroxine Sodium 50 MCG TAB PO SCH (05:33)
[2022-05-19 07:13] LABS: #Lymphocytes 1.1 thou/uL (1.20-3.40); #Monocytes 1.2 thou/uL (0.11-0.59); #Neutrophils 12.2 thou/uL (1.40-6.50); %Basophils 0.1 % (0.0-1.0); %Eosinophils 0.2 % (0.0-10.0); %Lymphocytes 7.7 % (21.0-51.0); %Monocytes 8.5 % (0.0-10.0); %Neutrophils 83.5 % (42.0-75.0); Hemoglobin 11.6 g/dL (14.0-18.0); Mean Corpuscular HGB CONC 30.4 g/dL (32.0-36.0); Mean Corpuscular Hemoglobin 25.9 pg (27.0-31.0); Mean Corpuscular Volume 85.1 fL (78.0-98.0); Mean Platelet Volume 7.8 fL (7.4-10.4); Platelet Count 261 thou/uL (130-400); RBC Distribution Width 15.2 % (11.5-14.5); Red Blood Cell (RBC) Count 4.49 mill/uL (4.70-6.10); White Blood Cell (WBC) Count 14.6 thou/uL (4.8-10.8)
[2022-05-19] MEDS: Lubiprostone 24 MCG CAP PO SCH (09:54)
[2022-05-19] MEDS: Methocarbamol 500 MG TAB PO SCH ×2 (09:55→21:03)
[2022-05-19] MEDS: Dexamethasone 4 MG TAB PO SCH ×2 (09:55→17:10)
[2022-05-19] MEDS: Tamsulosin HCl 0.4 MG CAP PO SCH (09:55)
[2022-05-19] MEDS: Apixaban 5 MG TAB PO SCH ×2 (09:55→21:03)
[2022-05-19] MEDS: DULoxetine 30 MG CAP PO SCH (09:55)
[2022-05-19] MEDS: Gabapentin 300 MG CAP PO SCH ×2 (09:55→21:02)
[2022-05-19] MEDS: HYDROcodone/Acetaminophen 10/325 mg Tablet PO PRN (11:50)
[2022-05-19] MEDS: Polyethylene Glycol 3350 17 GM Packet PO SCH (21:00)
[2022-05-19] MEDS ORDERED: Ibuprofen 800 MG TAB PO SCH (21:30)
[2022-05-20] MEDS: Levothyroxine Sodium 50 MCG TAB PO SCH (06:11)
[2022-05-20] MEDS: Dexamethasone 4 MG TAB PO SCH ×2 (08:56→17:08)
[2022-05-20] MEDS: Tamsulosin HCl 0.4 MG CAP PO SCH (08:56)
[2022-05-20] MEDS: DULoxetine 30 MG CAP PO SCH (08:56)
[2022-05-20] MEDS: Lubiprostone 24 MCG CAP PO SCH (08:56)
[2022-05-20] MEDS: Gabapentin 300 MG CAP PO SCH ×2 (08:57→20:59)
[2022-05-20] MEDS: Methocarbamol 500 MG TAB PO SCH ×2 (08:57→20:59)
[2022-05-20] MEDS: Apixaban 5 MG TAB PO SCH ×2 (08:57→20:59)
[2022-05-20] MEDS: Ibuprofen 800 MG TAB PO SCH ×2 (14:26→20:59)
[2022-05-20] MEDS: Polyethylene Glycol 3350 17 GM Packet PO SCH (21:00)
[2022-05-21] MEDS: Levothyroxine Sodium 50 MCG TAB PO SCH (05:47)
[2022-05-21] MEDS: DULoxetine 30 MG CAP PO SCH (08:29)
[2022-05-21] MEDS: Lubiprostone 24 MCG CAP PO SCH (08:29)
[2022-05-21] MEDS: Ibuprofen 800 MG TAB PO SCH ×3 (08:29→20:52)
[2022-05-21] MEDS: Dexamethasone 4 MG TAB PO SCH ×2 (08:30→16:22)
[2022-05-21] MEDS: Gabapentin 300 MG CAP PO SCH ×2 (08:30→20:51)
[2022-05-21] MEDS: Apixaban 5 MG TAB PO SCH ×2 (08:30→20:51)
[2022-05-21] MEDS: Methocarbamol 500 MG TAB PO SCH ×2 (08:31→20:51)
[2022-05-21] MEDS: Polyethylene Glycol 3350 17 GM Packet PO SCH (20:52)
[2022-05-22] MEDS: Levothyroxine Sodium 50 MCG TAB PO SCH (05:48)
[2022-05-22 08:43] VITALS: BP 129/86; TEMP 97.7
[2022-05-22] MEDS: DULoxetine 30 MG CAP PO SCH (09:54)
[2022-05-22] MEDS: Lubiprostone 24 MCG CAP PO SCH (09:54)
[2022-05-22] MEDS: Dexamethasone 4 MG TAB PO SCH (09:54)
[2022-05-22] MEDS: Gabapentin 300 MG CAP PO SCH (09:54)
[2022-05-22] MEDS: Ibuprofen 800 MG TAB PO SCH (09:55)
[2022-05-22] MEDS: Methocarbamol 500 MG TAB PO SCH (09:56)
[2022-05-22] MEDS: Tamsulosin HCl 0.4 MG CAP PO SCH (09:57)
[2022-05-22] MEDS: Apixaban 5 MG TAB PO SCH (10:03)
[2022-05-22] MEDS ORDERED: HYDROcodone/Acetaminophen 10/325 mg Tablet PO SCH (13:15)
== END 2022-05-22 14:30 | disposition swing bed (61) | DRG 686 ==
LOC: ERS 11:51 → NEURO 15:52 → MSONC 05-04 16:53
PROVIDERS: ADMIT Family Medicine; ATTEND Internal Medicine
PROC: 0TB13ZX Excision of Left Kidney, Percutaneous Approach, Diagnostic (ICD-10-PCS; principal; 2022-05-05)
DX: C64.2 Malignant neoplasm of left kidney, except renal pelvis (principal); G93.6 Cerebral edema; C79.31 Secondary malignant neoplasm of brain; N17.9 Acute kidney failure, unspecified; C78.01 Secondary malignant neoplasm of right lung; I82.411 Acute embolism and thrombosis of right femoral vein; I82.441 Acute embolism and thrombosis of right tibial vein; Z68.42 Body mass index [BMI] 45.0-49.9, adult; Z20.822 Contact with and (suspected) exposure to COVID-19; Z51.5 Encounter for palliative care; G47.33 Obstructive sleep apnea (adult) (pediatric); E03.9 Hypothyroidism, unspecified; E66.01 Morbid (severe) obesity due to excess calories; N40.0 Benign prostatic hyperplasia without lower urinary tract symptoms; N18.1 Chronic kidney disease, stage 1; I12.9 Hypertensive chronic kidney disease with stage 1 through stage 4 chronic kidney disease, or unspecified chronic kidney disease; D63.1 Anemia in chronic kidney disease; M19.90 Unspecified osteoarthritis, unspecified site; Z96.653 Presence of artificial knee joint, bilateral; Z87.891 Personal history of nicotine dependence; Z88.0 Allergy status to penicillin; Z98.890 Other specified postprocedural states; Z79.82 Long term (current) use of aspirin; Z79.899 Other long term (current) drug therapy; Z79.890 Hormone replacement therapy; Z80.9 Family history of malignant neoplasm, unspecified; Z82.49 Family history of ischemic heart disease and other diseases of the circulatory system; S72.401D Unspecified fracture of lower end of right femur, subsequent encounter for closed fracture with routine healing; E88.09 Other disorders of plasma-protein metabolism, not elsewhere classified
CPT/HCPCS: 36415; 50200; 71045; 77012; 77014; 77300; 77301; 77334; 77338; 77372; 80048; 80053; 80061; 80076; 81003; 82306; 83036; 83735; 83970; 84439; 84443; 85025; 85610; 85730; 86850; 86900; 86901; 88305; 88333; 88341; 88342; 93306; 93970; 96374; G0306; J0630; J1100; J2250; J3010; J3489; J3490; J7050; J8540; U0002; U0003; U0005

== ENCOUNTER 2022-06-14 13:40 | Inpatient (IN) | payer OTHER ==
[~2022-06-14 13:40] MED LIST: Iopamidol-370 76% 500 ML 1 ML ONE
[2022-06-14 14:30] LABS: Mean Corpuscular HGB CONC 29.8 g/dL (32.0-36.0); Mean Corpuscular Volume 83.7 fL (78.0-98.0); Mean Platelet Volume 6.9 fL (7.4-10.4); Platelet Count 413 thou/uL (130-400); RBC Distribution Width 15.1 % (11.5-14.5); Red Blood Cell (RBC) Count 4.02 mill/uL (4.70-6.10); White Blood Cell (WBC) Count 8.6 thou/uL (4.8-10.8)
[2022-06-14 14:50] LABS: Band 3 % (5-11); Hypochromia SLIGHT = 6-15 cells (100X) (0-5/hpf); Lymphocytes 4 % (21-51); MDiff Complete? YES; Monocytes 15 % (0-10); Neutrophil 73 % (42-75); Platelet Clumps SLIGHT; Platelet Morphology Comment Appears Increased; Polychromasia SLIGHT = 2-3 cells (100X) (0-2/hpf); Reactive Lymphocytes 5 % (0-10)
[2022-06-14 14:53] LABS: ALT (SGPT) 25 U/L (8-55); AST (SGOT) 23 U/L (5-34); Albumin 2.9 g/dL (3.5-5.0); Alkaline Phosphatase 86 U/L (40-110); Anion Gap 16 mmol/L (10-20); BUN (Urea Nitrogen) 24 mg/dL (8.4-25.7); Bilirubin, Total 0.9 mg/dL (0.2-1.2); Calc. Creatinine Clearance 0 mL/min (70-130); Carbon Dioxide 22 mmol/L (22-29); Chloride 101 mmol/L (98-107); Estimated GFR 72; Globulin 3.6 g/dL (2.4-3.5); Glucose 93 mg/dL (70-105); Protein, Total 6.5 g/dL (6.0-8.3); Sodium 135 mmol/L (136-145)
[2022-06-14] MEDS ORDERED: Cefepime 2 GM VIAL ONE (14:55)
[2022-06-14 15:01] LABS: Calcium 14.8 mg/dL (7.8-10.44)
[2022-06-14] MEDS ORDERED: Vancomycin 1 GM/200 ML BAG ONE (15:45)
[2022-06-14 15:49] LABS: Bilirubin Negative (Negative); Blood, Urine Negative (Negative); Clarity Clear (Clear); Glucose, Urine (Dipstick) Normal (Negative); Ketone, Urine Negative (Negative); Leukocyte Negative Leu/uL (Negative); Nitrite Negative (Negative); Protein, Urine (Dipstick) Negative (Neg-Trace); Specific Gravity, Urine 1.011 (1.002-1.036); pH, Urine 6.5 (5.0-9.0)
[2022-06-14 18:02] LABS: SARS-CoV-2 NAA Rapid Test Not Detected (NotDetected)
[2022-06-14] MEDS ORDERED: HYDROcodone/Acetaminophen 7.5/325 mg Tablet PO PRN (18:54)
[2022-06-14] MEDS ORDERED: Bisacodyl 5 MG TAB PO PRN (18:56)
[2022-06-14] MEDS ORDERED: Dexamethasone 4 mg/ml Vial SLOW IVP SCH (19:30)
[2022-06-14] MEDS ORDERED: Zoledronic Acid 4 MG in Sodium Chloride 0.9% 100 ML IVPB SCH (19:45)
[2022-06-14] MEDS: Sodium Chloride 0.9% 1,000 ML IV SCH (20:30)
[2022-06-14] MEDS ORDERED: Famotidine 20 MG TAB PO SCH (21:00)
[2022-06-14] MEDS ORDERED: Calcitonin,Salmon,Synthetic 400 UNITS/2 ML SC SCH ×3 (21:00→22:00)
[2022-06-14] MEDS ORDERED: Polyethylene Glycol 3350 17 GM Packet PO SCH (21:00)
[2022-06-14] MEDS: Apixaban 5 MG TAB PO SCH (22:47)
[2022-06-15] MEDS: VANCOMYCIN 2 GRAM/500 ML BAG 2 GM in Premix Bag 1 BAG IVPB SCH ×3 (00:36→18:28)
[2022-06-15] MEDS ORDERED: Cefepime 1 GM in Sodium Chloride 0.9% 100 ML IVPB SCH (03:00)
[2022-06-15] MEDS: Sodium Chloride 0.9% 1,000 ML IV SCH ×3 (03:46→23:57)
[2022-06-15 04:50] LABS: ALT (SGPT) 21 U/L (8-55); AST (SGOT) 20 U/L (5-34); Albumin 2.8 g/dL (3.5-5.0); Alkaline Phosphatase 79 U/L (40-110); Anion Gap 14 mmol/L (10-20); BUN (Urea Nitrogen) 17 mg/dL (8.4-25.7); Bilirubin, Total 0.8 mg/dL (0.2-1.2); Calc. Creatinine Clearance 161 mL/min (70-130); Carbon Dioxide 22 mmol/L (22-29); Chloride 105 mmol/L (98-107); Estimated GFR 94; Globulin 3.4 g/dL (2.4-3.5); Glucose 86 mg/dL (70-105); Potassium 3.7 mmol/L (3.5-5.1); Protein, Total 6.2 g/dL (6.0-8.3); Sodium 137 mmol/L (136-145)
[2022-06-15 05:04] LABS: Calcium 13.5 mg/dL (7.8-10.44)
[2022-06-15 05:13] LABS: Band 7 % (5-11); Hemoglobin 9.9 g/dL (14.0-18.0); Lymphocytes 6 % (21-51); MDiff Complete? YES; Mean Corpuscular HGB CONC 29.8 g/dL (32.0-36.0); Mean Corpuscular Hemoglobin 24.6 pg (27.0-31.0); Mean Corpuscular Volume 82.5 fL (78.0-98.0); Monocytes 12 % (0-10); Myelocyte 2 % (0-0); Neutrophil 73 % (42-75); Platelet Count 377 thou/uL (130-400); RBC Distribution Width 15.3 % (11.5-14.5); White Blood Cell (WBC) Count 8.7 thou/uL (4.8-10.8)
[2022-06-15] MEDS: Levothyroxine Sodium 50 MCG TAB PO SCH (06:04)
[2022-06-15] MEDS ORDERED: Polyethylene Glycol 3350 17 GM Packet PO SCH (09:30)
[2022-06-15] MEDS: Tamsulosin HCl 0.4 MG CAP PO SCH (10:22)
[2022-06-15] MEDS: Apixaban 5 MG TAB PO SCH ×2 (10:22→21:30)
[2022-06-15] MEDS: Cyclobenzaprine 10 MG TAB PO PRN (10:22)
[2022-06-15] MEDS: Loratadine 10 MG TAB PO SCH (10:22)
[2022-06-15] MEDS: Fluticasone Propionate Nasal Spray 16 gm Bottle NASAL SCH (10:22)
[2022-06-15 14:14] LABS: Anion Gap 14 mmol/L (10-20); BUN (Urea Nitrogen) 15 mg/dL (8.4-25.7); Calc. Creatinine Clearance 176 mL/min (70-130); Carbon Dioxide 20 mmol/L (22-29); Chloride 105 mmol/L (98-107); Estimated GFR 99; Glucose 96 mg/dL (70-105); Potassium 3.9 mmol/L (3.5-5.1); Sodium 135 mmol/L (136-145)
[2022-06-15] MEDS: Calcitonin,Salmon,Synthetic 400 UNITS/2 ML SC SCH ×2 (14:51→21:30)
[2022-06-15] MEDS ORDERED: Cefepime 2 GM in Sodium Chloride 0.9% 100 ML IVPB SCH (15:00)
[2022-06-15] MEDS: Acetaminophen 325 MG TAB PO PRN ×2 (15:38→21:31)
[2022-06-15] MEDS ORDERED: Dexamethasone 4 MG TAB PO SCH (17:00)
[2022-06-15] MEDS ORDERED: Ibuprofen 200 MG TAB PO PRN (19:56)
[2022-06-15] MEDS: Bisacodyl 10 MG SUPP PR SCH (21:30)
[2022-06-15] MEDS: Senokot S 8.6-50 MG TAB PO SCH (21:30)
[2022-06-15] MEDS: Polyethylene Glycol 3350 17 GM Packet PO SCH (21:31)
[2022-06-16] MEDS: Acetaminophen 325 MG TAB PO PRN ×2 (03:16→10:48)
[2022-06-16] MEDS: Sodium Chloride 0.9% 1,000 ML IV SCH ×3 (03:22→20:15)
[2022-06-16 05:25] LABS: ALT (SGPT) 15 U/L (8-55); AST (SGOT) 19 U/L (5-34); Albumin 2.6 g/dL (3.5-5.0); Alkaline Phosphatase 76 U/L (40-110); Anion Gap 13 mmol/L (10-20); BUN (Urea Nitrogen) 12 mg/dL (8.4-25.7); Bilirubin, Total 0.7 mg/dL (0.2-1.2); Calc. Creatinine Clearance 192 mL/min (70-130); Carbon Dioxide 20 mmol/L (22-29); Chloride 108 mmol/L (98-107); Estimated GFR 102; Globulin 3.3 g/dL (2.4-3.5); Glucose 89 mg/dL (70-105); Magnesium 1.6 mg/dL (1.6-2.6); Potassium 3.8 mmol/L (3.5-5.1); Protein, Total 5.9 g/dL (6.0-8.3); Sodium 137 mmol/L (136-145)
[2022-06-16 05:31] LABS: Calcium 12.2 mg/dL (7.8-10.44); Phosphorus 1.7 mg/dL (2.3-4.7)
[2022-06-16] MEDS: Levothyroxine Sodium 50 MCG TAB PO SCH (05:39)
[2022-06-16 06:38] LABS: Hemoglobin 9.3 g/dL (14.0-18.0); MDiff Complete? YES; Mean Corpuscular Hemoglobin 25.4 pg (27.0-31.0); Mean Corpuscular Volume 84.5 fL (78.0-98.0); Platelet Count 354 thou/uL (130-400); RBC Distribution Width 15.2 % (11.5-14.5); Red Blood Cell (RBC) Count 3.65 mill/uL (4.70-6.10); White Blood Cell (WBC) Count 7.5 thou/uL (4.8-10.8)
[2022-06-16 06:39] LABS: Band 9 % (5-11); Eosinophils 1 % (0-10); Lymphocytes 8 % (21-51); Monocytes 11 % (0-10); Myelocyte 1 % (0-0); Neutrophil 70 % (42-75)
[2022-06-16] MEDS ORDERED: Potassium Phosphate 15 MMOL in Sodium Chloride 0.9% 250 ML 250 ML IVPB SCH (09:45)
[2022-06-16] MEDS ORDERED: Magnesium 2 GM/50 ML(in water) 2 GM in Premix Bag 1 BAG IVPB SCH (09:45)
[2022-06-16] MEDS ORDERED: Iopamidol 370 76% 100 ML VIAL ONE (09:58)
[2022-06-16] MEDS: Senokot S 8.6-50 MG TAB PO SCH ×2 (10:43→20:14)
[2022-06-16] MEDS: Apixaban 5 MG TAB PO SCH (10:43)
[2022-06-16] MEDS: Polyethylene Glycol 3350 17 GM Packet PO SCH ×2 (10:43→20:15)
[2022-06-16] MEDS: Tamsulosin HCl 0.4 MG CAP PO SCH (10:43)
[2022-06-16] MEDS: Loratadine 10 MG TAB PO SCH (10:43)
[2022-06-16] MEDS ORDERED: Calcitonin,Salmon,Synthetic 400 UNITS/2 ML SC SCH (10:45)
[2022-06-16] MEDS: Calcitonin,Salmon,Synthetic 400 UNITS/2 ML SC SCH (12:02)
[2022-06-16] MEDS ORDERED: HYDROcodone/Acetaminophen 10/325 mg Tablet PO PRN (13:46)
[2022-06-16] MEDS ORDERED: Ibuprofen 200 MG TAB PO PRN ×2 (13:46→13:52)
[2022-06-16] MEDS ORDERED: Acetaminophen 325 MG TAB PO PRN (13:51)
[2022-06-16] MEDS: Lidocaine 5% Patch TD SCH (14:49)
[2022-06-16] MEDS: HYDROcodone/Acetaminophen 10/325 mg Tablet PO PRN ×2 (16:34→22:21)
[2022-06-16] MEDS: Fluticasone Propionate Nasal Spray 16 gm Bottle NASAL SCH (16:35)
[2022-06-16] MEDS: HYDROcodone/Acetaminophen 7.5/325 mg Tablet PO PRN (20:14)
[2022-06-16] MEDS: Bisacodyl 10 MG SUPP PR SCH (20:15)
[2022-06-16] MEDS: Cyclobenzaprine 10 MG TAB PO PRN (20:15)
[2022-06-17] MEDS: HYDROcodone/Acetaminophen 7.5/325 mg Tablet PO PRN ×2 (00:06→23:19)
[2022-06-17] MEDS: Sodium Chloride 0.9% 1,000 ML IV SCH ×3 (02:21→13:16)
[2022-06-17] MEDS: Transdermal Patch Removal TOP SCH (03:00)
[2022-06-17] MEDS: HYDROcodone/Acetaminophen 10/325 mg Tablet PO PRN ×2 (04:16→20:44)
[2022-06-17 04:31] LABS: ALT (SGPT) 14 U/L (8-55); AST (SGOT) 18 U/L (5-34); Albumin 2.6 g/dL (3.5-5.0); Alkaline Phosphatase 77 U/L (40-110); Anion Gap 11 mmol/L (10-20); BUN (Urea Nitrogen) 10 mg/dL (8.4-25.7); Bilirubin, Total 0.6 mg/dL (0.2-1.2); Calc. Creatinine Clearance 211 mL/min (70-130); Calcium 11.2 mg/dL (7.8-10.44); Carbon Dioxide 20 mmol/L (22-29); Chloride 108 mmol/L (98-107); Estimated GFR 105; Globulin 3.3 g/dL (2.4-3.5); Glucose 83 mg/dL (70-105); Magnesium 1.9 mg/dL (1.6-2.6); Potassium 4.1 mmol/L (3.5-5.1); Protein, Total 5.9 g/dL (6.0-8.3); Sodium 135 mmol/L (136-145)
[2022-06-17 04:39] LABS: Phosphorus 1.6 mg/dL (2.3-4.7)
[2022-06-17] MEDS: Levothyroxine Sodium 50 MCG TAB PO SCH (04:59)
[2022-06-17] MEDS ORDERED: Electrolyte Replacement Protocol 1 EACH IVPB SCH (05:00)
[2022-06-17] MEDS ORDERED: Magnesium 2 GM/50 ML(in water) 2 GM in Premix Bag 1 BAG IVPB SCH (05:00)
[2022-06-17 05:03] LABS: Band 6 % (5-11); Eosinophils 2 % (0-10); Hemoglobin 8.9 g/dL (14.0-18.0); Lymphocytes 13 % (21-51); MDiff Complete? YES; Mean Corpuscular HGB CONC 29.6 g/dL (32.0-36.0); Mean Corpuscular Hemoglobin 24.6 pg (27.0-31.0); Mean Corpuscular Volume 83.1 fL (78.0-98.0); Mean Platelet Volume 6.9 fL (7.4-10.4); Monocytes 21 % (0-10); Myelocyte 1 % (0-0); Neutrophil 57 % (42-75); Platelet Count 354 thou/uL (130-400); RBC Distribution Width 15.3 % (11.5-14.5); Red Blood Cell (RBC) Count 3.63 mill/uL (4.70-6.10); White Blood Cell (WBC) Count 7.6 thou/uL (4.8-10.8)
[2022-06-17] MEDS ORDERED: Potassium Phosphate 15 MMOL in Sodium Chloride 0.9% 100 ML IVPB SCH (05:30)
[2022-06-17] MEDS: Senokot S 8.6-50 MG TAB PO SCH ×2 (10:54→20:42)
[2022-06-17] MEDS: Loratadine 10 MG TAB PO SCH ×2 (10:54→13:16)
[2022-06-17] MEDS: Tamsulosin HCl 0.4 MG CAP PO SCH (10:55)
[2022-06-17] MEDS: Fluticasone Propionate Nasal Spray 16 gm Bottle NASAL SCH (10:55)
[2022-06-17] MEDS: Polyethylene Glycol 3350 17 GM Packet PO SCH ×2 (10:55→20:42)
[2022-06-17] MEDS: Apixaban 5 MG TAB PO SCH ×3 (10:58→20:42)
[2022-06-17] MEDS ORDERED: Loratadine 10 MG TAB PO PRN (11:06)
[2022-06-17] MEDS: Cyclobenzaprine 10 MG TAB PO PRN ×2 (11:13→19:01)
[2022-06-17] MEDS: Lidocaine 5% Patch TD SCH ×2 (16:44→17:04)
[2022-06-17] MEDS: Bisacodyl 10 MG SUPP PR SCH (20:41)
[2022-06-18] MEDS: Sodium Chloride 0.9% 1,000 ML IV SCH ×2 (03:12→05:55)
[2022-06-18] MEDS: Transdermal Patch Removal TOP SCH (03:13)
[2022-06-18 04:19] LABS: Band 5 % (5-11); Hypochromia SLIGHT = 6-15 cells (100X) (0-5/hpf); Lymphocytes 15 % (21-51); MDiff Complete? YES; Mean Corpuscular HGB CONC 30.8 g/dL (32.0-36.0); Mean Corpuscular Hemoglobin 25.1 pg (27.0-31.0); Mean Corpuscular Volume 81.5 fL (78.0-98.0); Mean Platelet Volume 6.8 fL (7.4-10.4); Monocytes 14 % (0-10); Neutrophil 65 % (42-75); Platelet Count 370 thou/uL (130-400); Platelet Morphology Comment Appears Adequate; RBC Distribution Width 15.5 % (11.5-14.5); Reactive Lymphocytes 1 % (0-10); White Blood Cell (WBC) Count 7.8 thou/uL (4.8-10.8)
[2022-06-18 04:22] LABS: Anion Gap 11 mmol/L (10-20); BUN (Urea Nitrogen) 11 mg/dL (8.4-25.7); Calc. Creatinine Clearance 195 mL/min (70-130); Calcium 11.4 mg/dL (7.8-10.44); Carbon Dioxide 19 mmol/L (22-29); Chloride 106 mmol/L (98-107); Estimated GFR 102; Glucose 136 mg/dL (70-105); Potassium 4.1 mmol/L (3.5-5.1); Sodium 132 mmol/L (136-145)
[2022-06-18 04:27] LABS: Phosphorus 1.5 mg/dL (2.3-4.7)
[2022-06-18] MEDS: HYDROcodone/Acetaminophen 10/325 mg Tablet PO PRN ×3 (05:54→19:41)
[2022-06-18] MEDS: Levothyroxine Sodium 50 MCG TAB PO SCH (05:55)
[2022-06-18] MEDS ORDERED: Potassium Phosphate 22 MMOL in Sodium Chloride 0.9% 250 ML 250 ML IVPB SCH (08:00)
[2022-06-18] MEDS: Cyclobenzaprine 10 MG TAB PO PRN (09:17)
[2022-06-18] MEDS: Apixaban 5 MG TAB PO SCH ×2 (09:17→19:40)
[2022-06-18] MEDS: Polyethylene Glycol 3350 17 GM Packet PO SCH ×2 (09:17→19:40)
[2022-06-18] MEDS: Tamsulosin HCl 0.4 MG CAP PO SCH (09:17)
[2022-06-18] MEDS: Senokot S 8.6-50 MG TAB PO SCH ×2 (09:17→19:41)
[2022-06-18] MEDS: Fluticasone Propionate Nasal Spray 16 gm Bottle NASAL SCH (11:41)
[2022-06-18] MEDS ORDERED: PHOS-NAK 1 PKT PACK PO SCH (17:00)
[2022-06-18] MEDS: Lidocaine 5% Patch TD SCH (17:51)
[2022-06-18] MEDS: Bisacodyl 10 MG SUPP PR SCH (19:47)
[2022-06-19] MEDS: Sodium Chloride 0.9% 1,000 ML IV SCH ×2 (01:36→16:48)
[2022-06-19] MEDS: HYDROcodone/Acetaminophen 10/325 mg Tablet PO PRN ×3 (02:30→18:43)
[2022-06-19] MEDS: Transdermal Patch Removal TOP SCH (03:25)
[2022-06-19 04:33] LABS: Anion Gap 13 mmol/L (10-20); BUN (Urea Nitrogen) 10 mg/dL (8.4-25.7); Calc. Creatinine Clearance 208 mL/min (70-130); Calcium 11.3 mg/dL (7.8-10.44); Carbon Dioxide 18 mmol/L (22-29); Chloride 106 mmol/L (98-107); Estimated GFR 105; Glucose 131 mg/dL (70-105); Potassium 4.6 mmol/L (3.5-5.1); Sodium 132 mmol/L (136-145)
[2022-06-19 04:37] LABS: Phosphorus 1.4 mg/dL (2.3-4.7)
[2022-06-19 04:57] LABS: Anisocytosis SLIGHT = 6-15 cells (100X) (0-5/hpf); Band 2 % (5-11); Eosinophils 1 % (0-10); Hypochromia SLIGHT = 6-15 cells (100X) (0-5/hpf); Lymphocytes 7 % (21-51); MDiff Complete? YES; Mean Corpuscular HGB CONC 30.1 g/dL (32.0-36.0); Mean Corpuscular Hemoglobin 24.9 pg (27.0-31.0); Mean Corpuscular Volume 82.7 fL (78.0-98.0); Metamyelocyte 1 % (0-0); Monocytes 16 % (0-10); Myelocyte 1 % (0-0); Neutrophil 71 % (42-75); Platelet Count 400 thou/uL (130-400); Platelet Morphology Comment Appears Adequate; Polychromasia SLIGHT = 2-3 cells (100X) (0-2/hpf); RBC Distribution Width 15.4 % (11.5-14.5); Red Blood Cell (RBC) Count 3.62 mill/uL (4.70-6.10); White Blood Cell (WBC) Count 8.4 thou/uL (4.8-10.8)
[2022-06-19] MEDS: Levothyroxine Sodium 50 MCG TAB PO SCH (05:24)
[2022-06-19] MEDS: PHOS-NAK 1 PKT PACK PO SCH ×4 (09:44→20:16)
[2022-06-19] MEDS: Fluticasone Propionate Nasal Spray 16 gm Bottle NASAL SCH (09:45)
[2022-06-19] MEDS: Polyethylene Glycol 3350 17 GM Packet PO SCH ×2 (09:45→20:15)
[2022-06-19] MEDS: Senokot S 8.6-50 MG TAB PO SCH ×2 (09:45→20:16)
[2022-06-19] MEDS: Apixaban 5 MG TAB PO SCH ×2 (09:45→20:16)
[2022-06-19] MEDS: Tamsulosin HCl 0.4 MG CAP PO SCH (09:45)
[2022-06-19] MEDS: Lidocaine 5% Patch TD SCH (16:47)
[2022-06-19] MEDS: Bisacodyl 10 MG SUPP PR SCH (20:22)
[2022-06-20] MEDS: HYDROcodone/Acetaminophen 10/325 mg Tablet PO PRN ×4 (01:54→22:40)
[2022-06-20] MEDS: Transdermal Patch Removal TOP SCH ×2 (02:33→20:41)
[2022-06-20] MEDS: Sodium Chloride 0.9% 1,000 ML IV SCH ×2 (04:26→18:43)
[2022-06-20] MEDS: Levothyroxine Sodium 50 MCG TAB PO SCH (04:27)
[2022-06-20 05:28] LABS: Anion Gap 14 mmol/L (10-20); BUN (Urea Nitrogen) 9 mg/dL (8.4-25.7); Band 7 % (5-11); Calc. Creatinine Clearance 221 mL/min (70-130); Calcium 11.5 mg/dL (7.8-10.44); Carbon Dioxide 20 mmol/L (22-29); Chloride 104 mmol/L (98-107); Estimated GFR 106; Glucose 106 mg/dL (70-105); Hemoglobin 9.3 g/dL (14.0-18.0); Hypochromia SLIGHT = 6-15 cells (100X) (0-5/hpf); Lymphocytes 10 % (21-51); MDiff Complete? YES; Magnesium 1.9 mg/dL (1.6-2.6); Mean Corpuscular HGB CONC 30.3 g/dL (32.0-36.0); Mean Corpuscular Hemoglobin 24.9 pg (27.0-31.0); Mean Corpuscular Volume 82.2 fL (78.0-98.0); Mean Platelet Volume 7.1 fL (7.4-10.4); Monocytes 11 % (0-10); Neutrophil 72 % (42-75); Platelet Count 440 thou/uL (130-400); Platelet Morphology Comment Appears Increased; Potassium 4.7 mmol/L (3.5-5.1); RBC Distribution Width 15.6 % (11.5-14.5); Red Blood Cell (RBC) Count 3.73 mill/uL (4.70-6.10); Sodium 133 mmol/L (136-145)
[2022-06-20] MEDS ORDERED: Magnesium 2 GM/50 ML(in water) 2 GM in Premix Bag 1 BAG IVPB SCH (08:00)
[2022-06-20] MEDS ORDERED: PHOS-NAK 1 PKT PACK PO SCH (08:00)
[2022-06-20] MEDS: Apixaban 5 MG TAB PO SCH ×2 (09:29→20:55)
[2022-06-20] MEDS: Senokot S 8.6-50 MG TAB PO SCH ×2 (09:29→20:54)
[2022-06-20] MEDS: Polyethylene Glycol 3350 17 GM Packet PO SCH ×2 (09:29→20:52)
[2022-06-20] MEDS: Tamsulosin HCl 0.4 MG CAP PO SCH (09:29)
[2022-06-20] MEDS: Fluticasone Propionate Nasal Spray 16 gm Bottle NASAL SCH (09:30)
[2022-06-20] MEDS: Lidocaine 5% Patch TD SCH (14:07)
[2022-06-20] MEDS: Bisacodyl 10 MG SUPP PR SCH (20:52)
[2022-06-21] MEDS: HYDROcodone/Acetaminophen 7.5/325 mg Tablet PO PRN ×2 (00:44→04:21)
[2022-06-21 05:01] LABS: Anion Gap 13 mmol/L (10-20); BUN (Urea Nitrogen) 9 mg/dL (8.4-25.7); Calc. Creatinine Clearance 208 mL/min (70-130); Calcium 11.7 mg/dL (7.8-10.44); Carbon Dioxide 19 mmol/L (22-29); Chloride 105 mmol/L (98-107); Estimated GFR 105; Glucose 154 mg/dL (70-105); Potassium 4.5 mmol/L (3.5-5.1); Sodium 132 mmol/L (136-145)
[2022-06-21 05:03] LABS: Phosphorus 1.8 mg/dL (2.3-4.7)
[2022-06-21 05:32] LABS: Anisocytosis SLIGHT = 6-15 cells (100X) (0-5/hpf); Band 1 % (5-11); Eosinophils 1 % (0-10); Hemoglobin 8.7 g/dL (14.0-18.0); Hypochromia SLIGHT = 6-15 cells (100X) (0-5/hpf); Lymphocytes 10 % (21-51); MDiff Complete? YES; Mean Corpuscular HGB CONC 30.6 g/dL (32.0-36.0); Mean Corpuscular Hemoglobin 25.1 pg (27.0-31.0); Mean Corpuscular Volume 82.2 fL (78.0-98.0); Mean Platelet Volume 7.1 fL (7.4-10.4); Monocytes 18 % (0-10); Myelocyte 1 % (0-0); Neutrophil 69 % (42-75); Platelet Count 433 thou/uL (130-400); Platelet Morphology Comment Appears Increased; Polychromasia SLIGHT = 2-3 cells (100X) (0-2/hpf); RBC Distribution Width 15.5 % (11.5-14.5); Red Blood Cell (RBC) Count 3.45 mill/uL (4.70-6.10); White Blood Cell (WBC) Count 10.3 thou/uL (4.8-10.8)
[2022-06-21] MEDS: Levothyroxine Sodium 50 MCG TAB PO SCH (06:04)
[2022-06-21] MEDS: HYDROcodone/Acetaminophen 10/325 mg Tablet PO PRN ×2 (08:59→21:57)
[2022-06-21] MEDS: Apixaban 5 MG TAB PO SCH ×2 (09:00→22:00)
[2022-06-21] MEDS: PHOS-NAK 1 PKT PACK PO SCH ×2 (09:00→13:26)
[2022-06-21] MEDS: Tamsulosin HCl 0.4 MG CAP PO SCH (09:00)
[2022-06-21] MEDS: Polyethylene Glycol 3350 17 GM Packet PO SCH ×2 (09:00→22:00)
[2022-06-21] MEDS: Senokot S 8.6-50 MG TAB PO SCH ×2 (09:00→22:02)
[2022-06-21] MEDS: Sodium Chloride 0.9% 1,000 ML IV SCH ×2 (09:01→22:09)
[2022-06-21] MEDS: Fluticasone Propionate Nasal Spray 16 gm Bottle NASAL SCH (09:01)
[2022-06-21] MEDS: Cyclobenzaprine 10 MG TAB PO PRN (14:34)
[2022-06-21] MEDS: Lidocaine 5% Patch TD SCH (14:36)
[2022-06-21] MEDS ORDERED: CABOZANTINIB 60 MG PO SCH (15:30)
[2022-06-21] MEDS ORDERED: Zoledronic Acid 4 MG in Sodium Chloride 0.9% 100 ML IVPB SCH (18:30)
[2022-06-21] MEDS: Bisacodyl 10 MG SUPP PR SCH (22:00)
[2022-06-22] MEDS: Transdermal Patch Removal TOP SCH (03:50)
[2022-06-22] MEDS: HYDROcodone/Acetaminophen 10/325 mg Tablet PO PRN ×2 (03:52→10:00)
[2022-06-22 05:01] LABS: ALT (SGPT) 12 U/L (8-55); AST (SGOT) 23 U/L (5-34); Albumin 2.6 g/dL (3.5-5.0); Alkaline Phosphatase 92 U/L (40-110); Anion Gap 13 mmol/L (10-20); BUN (Urea Nitrogen) 9 mg/dL (8.4-25.7); Bilirubin, Total 0.8 mg/dL (0.2-1.2); Calc. Creatinine Clearance 238 mL/min (70-130); Carbon Dioxide 18 mmol/L (22-29); Chloride 104 mmol/L (98-107); Estimated GFR 106; Globulin 3.2 g/dL (2.4-3.5); Glucose 88 mg/dL (70-105); Potassium 4.9 mmol/L (3.5-5.1); Protein, Total 5.8 g/dL (6.0-8.3); Sodium 130 mmol/L (136-145)
[2022-06-22 05:12] LABS: Calcium 12.6 mg/dL (7.8-10.44)
[2022-06-22 05:23] LABS: Free T4 (Free Thyroxine) 0.78 ng/dL (0.70-1.48); Thyroid Stimulating Hormone 7.8116 uIU/mL (0.35-4.94)
[2022-06-22 05:33] LABS: Hemoglobin 9.2 g/dL (14.0-18.0); MDiff Complete? YES; Mean Corpuscular HGB CONC 29.4 g/dL (32.0-36.0); Mean Corpuscular Hemoglobin 24.4 pg (27.0-31.0); Mean Corpuscular Volume 82.9 fL (78.0-98.0); Mean Platelet Volume 7.9 fL (7.4-10.4); Platelet Count 403 thou/uL (130-400); RBC Distribution Width 15.8 % (11.5-14.5); Red Blood Cell (RBC) Count 3.76 mill/uL (4.70-6.10); White Blood Cell (WBC) Count 12.4 thou/uL (4.8-10.8)
[2022-06-22 05:34] LABS: Hypochromia SLIGHT = 6-15 cells (100X) (0-5/hpf); Lymphocytes 8 % (21-51); Monocytes 27 % (0-10); Neutrophil 65 % (42-75); Platelet Morphology Comment Appears Increased
[2022-06-22] MEDS: Sodium Chloride 0.9% 1,000 ML IV SCH ×3 (06:08→20:43)
[2022-06-22] MEDS: Levothyroxine Sodium 50 MCG TAB PO SCH (06:09)
[2022-06-22] MEDS ORDERED: Calcitonin,Salmon,Synthetic 400 UNITS/2 ML SC SCH ×4 (06:30→14:00)
[2022-06-22] MEDS: Apixaban 5 MG TAB PO SCH ×2 (08:38→20:38)
[2022-06-22] MEDS: Tamsulosin HCl 0.4 MG CAP PO SCH (08:38)
[2022-06-22] MEDS: Ondansetron ODT 4 MG TAB PO SCH (08:38)
[2022-06-22] MEDS: Fluticasone Propionate Nasal Spray 16 gm Bottle NASAL SCH (08:39)
[2022-06-22] MEDS: Polyethylene Glycol 3350 17 GM Packet PO SCH ×2 (08:39→20:38)
[2022-06-22] MEDS: Senokot S 8.6-50 MG TAB PO SCH ×2 (08:49→20:39)
[2022-06-22] MEDS ORDERED: CABOZANTINIB 60 MG PO SCH (09:00)
[2022-06-22] MEDS: Lidocaine 5% Patch TD SCH (15:37)
[2022-06-22] MEDS: HYDROcodone/Acetaminophen 7.5/325 mg Tablet PO PRN (17:28)
[2022-06-22] MEDS: CABOZANTINIB 60 MG PO SCH (17:58)
[2022-06-22] MEDS: Bisacodyl 10 MG SUPP PR SCH (20:38)
[2022-06-23] MEDS: Transdermal Patch Removal TOP SCH (04:13)
[2022-06-23 04:51] LABS: ALT (SGPT) 8 U/L (8-55); AST (SGOT) 17 U/L (5-34); Albumin 2.3 g/dL (3.5-5.0); Alkaline Phosphatase 81 U/L (40-110); Anion Gap 12 mmol/L (10-20); BUN (Urea Nitrogen) 8 mg/dL (8.4-25.7); Calc. Creatinine Clearance 249 mL/min (70-130); Calcium 11.4 mg/dL (7.8-10.44); Carbon Dioxide 21 mmol/L (22-29); Chloride 105 mmol/L (98-107); Estimated GFR 108; Globulin 3.1 g/dL (2.4-3.5); Glucose 88 mg/dL (70-105); Potassium 4.7 mmol/L (3.5-5.1); Protein, Total 5.4 g/dL (6.0-8.3); Sodium 133 mmol/L (136-145)
[2022-06-23 05:30] LABS: Hemoglobin 8.1 g/dL (14.0-18.0); Mean Corpuscular HGB CONC 30.2 g/dL (32.0-36.0); Mean Corpuscular Hemoglobin 24.6 pg (27.0-31.0); Mean Corpuscular Volume 81.3 fL (78.0-98.0); Mean Platelet Volume 6.8 fL (7.4-10.4); Platelet Count 475 thou/uL (130-400); RBC Distribution Width 15.7 % (11.5-14.5); Red Blood Cell (RBC) Count 3.31 mill/uL (4.70-6.10); White Blood Cell (WBC) Count 10.9 thou/uL (4.8-10.8)
[2022-06-23] MEDS: HYDROcodone/Acetaminophen 10/325 mg Tablet PO PRN ×2 (05:32→16:20)
[2022-06-23] MEDS: Levothyroxine Sodium 50 MCG TAB PO SCH (05:33)
[2022-06-23] MEDS: Sodium Chloride 0.9% 1,000 ML IV SCH ×3 (05:35→22:44)
[2022-06-23 05:36] LABS: Anisocytosis SLIGHT = 6-15 cells (100X) (0-5/hpf); Band 2 % (5-11); Hypochromia SLIGHT = 6-15 cells (100X) (0-5/hpf); Lymphocytes 6 % (21-51); MDiff Complete? YES; Monocytes 16 % (0-10); Neutrophil 73 % (42-75); Platelet Morphology Comment Appears Increased; Polychromasia SLIGHT = 2-3 cells (100X) (0-2/hpf); Reactive Lymphocytes 4 % (0-10)
[2022-06-23] MEDS: Ondansetron ODT 4 MG TAB PO SCH (08:28)
[2022-06-23] MEDS: Apixaban 5 MG TAB PO SCH ×2 (08:28→20:51)
[2022-06-23] MEDS: Tamsulosin HCl 0.4 MG CAP PO SCH (08:28)
[2022-06-23] MEDS: CABOZANTINIB 60 MG PO SCH (08:29)
[2022-06-23] MEDS: Senokot S 8.6-50 MG TAB PO SCH ×2 (08:29→20:51)
[2022-06-23] MEDS: Polyethylene Glycol 3350 17 GM Packet PO SCH ×2 (08:29→20:51)
[2022-06-23] MEDS: Fluticasone Propionate Nasal Spray 16 gm Bottle NASAL SCH (08:29)
[2022-06-23] MEDS: Cyclobenzaprine 10 MG TAB PO PRN ×2 (09:50→20:50)
[2022-06-23] MEDS: Lidocaine 5% Patch TD SCH (14:21)
[2022-06-23] MEDS: Calcitonin,Salmon,Synthetic 400 UNITS/2 ML SC SCH (17:02)
[2022-06-23] MEDS: HYDROcodone/Acetaminophen 7.5/325 mg Tablet PO PRN (20:50)
[2022-06-23] MEDS: Bisacodyl 10 MG SUPP PR SCH (20:51)
[2022-06-24] MEDS: Transdermal Patch Removal TOP SCH (02:29)
[2022-06-24] MEDS: Calcitonin,Salmon,Synthetic 400 UNITS/2 ML SC SCH ×2 (02:30→05:02)
[2022-06-24] MEDS: HYDROcodone/Acetaminophen 7.5/325 mg Tablet PO PRN ×2 (02:38→21:19)
[2022-06-24 05:01] LABS: ALT (SGPT) 9 U/L (8-55); AST (SGOT) 21 U/L (5-34); Albumin 2.3 g/dL (3.5-5.0); Alkaline Phosphatase 83 U/L (40-110); Anion Gap 11 mmol/L (10-20); BUN (Urea Nitrogen) 9 mg/dL (8.4-25.7); Bilirubin, Total 1.1 mg/dL (0.2-1.2); Calc. Creatinine Clearance 265 mL/min (70-130); Calcium 11.1 mg/dL (7.8-10.44); Carbon Dioxide 20 mmol/L (22-29); Chloride 106 mmol/L (98-107); Estimated GFR 109; Globulin 3.3 g/dL (2.4-3.5); Glucose 92 mg/dL (70-105); Potassium 4.4 mmol/L (3.5-5.1); Protein, Total 5.6 g/dL (6.0-8.3); Sodium 133 mmol/L (136-145)
[2022-06-24] MEDS: Sodium Chloride 0.9% 1,000 ML IV SCH ×2 (05:01→19:34)
[2022-06-24] MEDS: Levothyroxine Sodium 50 MCG TAB PO SCH (05:02)
[2022-06-24 07:01] LABS: Anisocytosis SLIGHT = 6-15 cells (100X) (0-5/hpf); Band 6 % (5-11); Eosinophils 1 % (0-10); Hemoglobin 8.1 g/dL (14.0-18.0); Lymphocytes 10 % (21-51); MDiff Complete? YES; Mean Corpuscular Hemoglobin 24.8 pg (27.0-31.0); Mean Corpuscular Volume 82.8 fL (78.0-98.0); Mean Platelet Volume 7.1 fL (7.4-10.4); Monocytes 11 % (0-10); Neutrophil 72 % (42-75); Platelet Count 467 thou/uL (130-400); RBC Distribution Width 15.5 % (11.5-14.5); Red Blood Cell (RBC) Count 3.26 mill/uL (4.70-6.10); White Blood Cell (WBC) Count 9.5 thou/uL (4.8-10.8)
[2022-06-24] MEDS: Ondansetron ODT 4 MG TAB PO SCH (08:48)
[2022-06-24] MEDS: Tamsulosin HCl 0.4 MG CAP PO SCH (08:48)
[2022-06-24] MEDS: Apixaban 5 MG TAB PO SCH ×2 (08:48→21:21)
[2022-06-24] MEDS: CABOZANTINIB 60 MG PO SCH (08:49)
[2022-06-24] MEDS: Senokot S 8.6-50 MG TAB PO SCH ×2 (08:49→21:19)
[2022-06-24] MEDS: HYDROcodone/Acetaminophen 10/325 mg Tablet PO PRN (08:59)
[2022-06-24] MEDS: Polyethylene Glycol 3350 17 GM Packet PO SCH ×2 (10:06→23:28)
[2022-06-24] MEDS: Fluticasone Propionate Nasal Spray 16 gm Bottle NASAL SCH (10:06)
[2022-06-24] MEDS: Lidocaine 5% Patch TD SCH (19:33)
[2022-06-24] MEDS: Cyclobenzaprine 10 MG TAB PO PRN (22:39)
[2022-06-24] MEDS: Bisacodyl 10 MG SUPP PR SCH (23:29)
[2022-06-25] MEDS: Sodium Chloride 0.9% 1,000 ML IV SCH ×3 (04:09→17:02)
[2022-06-25] MEDS: Levothyroxine Sodium 50 MCG TAB PO SCH (05:40)
[2022-06-25] MEDS: Transdermal Patch Removal TOP SCH (05:43)
[2022-06-25 07:19] LABS: ALT (SGPT) 8 U/L (8-55); AST (SGOT) 23 U/L (5-34); Albumin 2.3 g/dL (3.5-5.0); Alkaline Phosphatase 91 U/L (40-110); Anion Gap 11 mmol/L (10-20); BUN (Urea Nitrogen) 9 mg/dL (8.4-25.7); Bilirubin, Total 1.2 mg/dL (0.2-1.2); Calc. Creatinine Clearance 269 mL/min (70-130); Calcium 10.6 mg/dL (7.8-10.44); Carbon Dioxide 21 mmol/L (22-29); Chloride 106 mmol/L (98-107); Estimated GFR 109; Globulin 3.3 g/dL (2.4-3.5); Glucose 99 mg/dL (70-105); Protein, Total 5.6 g/dL (6.0-8.3); Sodium 134 mmol/L (136-145)
[2022-06-25] MEDS: HYDROcodone/Acetaminophen 10/325 mg Tablet PO PRN (09:37)
[2022-06-25 09:40] LABS: #Eosinphils 0.1 thou/uL (0.0-0.7); #Lymphocytes 0.8 thou/uL (1.20-3.40); #Monocytes 1.3 thou/uL (0.11-0.59); #Neutrophils 6.7 thou/uL (1.40-6.50); %Basophils 0.3 % (0.0-1.0); %Eosinophils 1.4 % (0.0-10.0); %Lymphocytes 8.3 % (21.0-51.0); %Monocytes 14.8 % (0.0-10.0); %Neutrophils 75.1 % (42.0-75.0); Hypochromia SLIGHT = 6-15 cells (100X) (0-5/hpf); MDiff Complete? YES; Mean Corpuscular HGB CONC 29.8 g/dL (32.0-36.0); Mean Corpuscular Hemoglobin 24.4 pg (27.0-31.0); Mean Corpuscular Volume 81.7 fL (78.0-98.0); Mean Platelet Volume 6.8 fL (7.4-10.4); Platelet Count 463 thou/uL (130-400); Platelet Morphology Comment Appears Increased; Polychromasia SLIGHT = 2-3 cells (100X) (0-2/hpf); RBC Distribution Width 15.8 % (11.5-14.5); Red Blood Cell (RBC) Count 3.27 mill/uL (4.70-6.10)
[2022-06-25] MEDS: CABOZANTINIB 60 MG PO SCH (11:07)
[2022-06-25] MEDS: Fluticasone Propionate Nasal Spray 16 gm Bottle NASAL SCH (11:08)
[2022-06-25] MEDS: Apixaban 5 MG TAB PO SCH ×2 (11:08→20:12)
[2022-06-25] MEDS: Polyethylene Glycol 3350 17 GM Packet PO SCH ×2 (11:08→20:20)
[2022-06-25] MEDS: Ondansetron ODT 4 MG TAB PO SCH (11:08)
[2022-06-25] MEDS: Senokot S 8.6-50 MG TAB PO SCH ×2 (11:08→20:12)
[2022-06-25] MEDS: Tamsulosin HCl 0.4 MG CAP PO SCH (11:08)
[2022-06-25] MEDS: Lidocaine 5% Patch TD SCH (15:26)
[2022-06-25] MEDS: Bisacodyl 10 MG SUPP PR SCH (20:12)
[2022-06-25] MEDS: Cyclobenzaprine 10 MG TAB PO PRN (20:12)
[2022-06-26] MEDS: Transdermal Patch Removal TOP SCH (04:09)
[2022-06-26] MEDS: Sodium Chloride 0.9% 1,000 ML IV SCH ×3 (04:28→18:07)
[2022-06-26 04:39] LABS: ALT (SGPT) 9 U/L (8-55); AST (SGOT) 22 U/L (5-34); Albumin 2.3 g/dL (3.5-5.0); Alkaline Phosphatase 92 U/L (40-110); Anion Gap 12 mmol/L (10-20); BUN (Urea Nitrogen) 7 mg/dL (8.4-25.7); Bilirubin, Total 0.7 mg/dL (0.2-1.2); Calc. Creatinine Clearance 292 mL/min (70-130); Calcium 10.9 mg/dL (7.8-10.44); Carbon Dioxide 20 mmol/L (22-29); Chloride 106 mmol/L (98-107); Estimated GFR 112; Globulin 3.3 g/dL (2.4-3.5); Glucose 88 mg/dL (70-105); Potassium 3.9 mmol/L (3.5-5.1); Protein, Total 5.6 g/dL (6.0-8.3); Sodium 134 mmol/L (136-145)
[2022-06-26] MEDS: Levothyroxine Sodium 50 MCG TAB PO SCH (06:11)
[2022-06-26] MEDS: Senokot S 8.6-50 MG TAB PO SCH ×2 (08:23→21:32)
[2022-06-26] MEDS: Polyethylene Glycol 3350 17 GM Packet PO SCH ×3 (08:23→21:35)
[2022-06-26] MEDS: CABOZANTINIB 60 MG PO SCH (08:24)
[2022-06-26] MEDS: Ondansetron ODT 4 MG TAB PO SCH (08:25)
[2022-06-26] MEDS: Apixaban 5 MG TAB PO SCH ×2 (08:25→21:32)
[2022-06-26] MEDS: Tamsulosin HCl 0.4 MG CAP PO SCH (08:25)
[2022-06-26] MEDS: Fluticasone Propionate Nasal Spray 16 gm Bottle NASAL SCH (08:26)
[2022-06-26] MEDS: HYDROcodone/Acetaminophen 10/325 mg Tablet PO PRN (09:59)
[2022-06-26] MEDS: Lidocaine 5% Patch TD SCH (15:46)
[2022-06-26] MEDS: Bisacodyl 10 MG SUPP PR SCH (21:33)
[2022-06-27] MEDS: Sodium Chloride 0.9% 1,000 ML IV SCH ×3 (02:31→18:21)
[2022-06-27] MEDS: Transdermal Patch Removal TOP SCH (03:30)
[2022-06-27 05:09] LABS: ALT (SGPT) 8 U/L (8-55); AST (SGOT) 22 U/L (5-34); Albumin 2.1 g/dL (3.5-5.0); Alkaline Phosphatase 94 U/L (40-110); Anion Gap 12 mmol/L (10-20); BUN (Urea Nitrogen) 6 mg/dL (8.4-25.7); Bilirubin, Total 0.7 mg/dL (0.2-1.2); Calc. Creatinine Clearance 314 mL/min (70-130); Calcium 10.4 mg/dL (7.8-10.44); Carbon Dioxide 21 mmol/L (22-29); Chloride 105 mmol/L (98-107); Estimated GFR 115; Globulin 3.4 g/dL (2.4-3.5); Glucose 89 mg/dL (70-105); Potassium 3.8 mmol/L (3.5-5.1); Protein, Total 5.5 g/dL (6.0-8.3); Sodium 134 mmol/L (136-145)
[2022-06-27] MEDS: Levothyroxine Sodium 50 MCG TAB PO SCH (06:31)
[2022-06-27] MEDS: Ondansetron ODT 4 MG TAB PO SCH (07:42)
[2022-06-27] MEDS: HYDROcodone/Acetaminophen 10/325 mg Tablet PO PRN ×2 (07:43→12:14)
[2022-06-27] MEDS: Tamsulosin HCl 0.4 MG CAP PO SCH (07:43)
[2022-06-27] MEDS: Apixaban 5 MG TAB PO SCH ×2 (07:43→21:44)
[2022-06-27] MEDS: Polyethylene Glycol 3350 17 GM Packet PO SCH ×2 (07:45→21:44)
[2022-06-27] MEDS: Senokot S 8.6-50 MG TAB PO SCH ×2 (07:45→21:44)
[2022-06-27] MEDS: Fluticasone Propionate Nasal Spray 16 gm Bottle NASAL SCH (07:46)
[2022-06-27] MEDS: CABOZANTINIB 60 MG PO SCH (07:46)
[2022-06-27] MEDS: Lidocaine 5% Patch TD SCH (15:07)
[2022-06-27] MEDS: Bisacodyl 10 MG SUPP PR SCH (21:44)
[2022-06-28] MEDS: Sodium Chloride 0.9% 1,000 ML IV SCH ×3 (01:38→20:24)
[2022-06-28] MEDS: Cyclobenzaprine 10 MG TAB PO PRN ×2 (01:42→20:26)
[2022-06-28] MEDS: Transdermal Patch Removal TOP SCH (03:04)
[2022-06-28 05:23] LABS: #Eosinphils 0.1 thou/uL (0.0-0.7); #Lymphocytes 0.9 thou/uL (1.20-3.40); #Monocytes 0.9 thou/uL (0.11-0.59); #Neutrophils 4.9 thou/uL (1.40-6.50); %Basophils 0.5 % (0.0-1.0); %Lymphocytes 12.8 % (21.0-51.0); %Monocytes 13.7 % (0.0-10.0); Hemoglobin 7.8 g/dL (14.0-18.0); Mean Corpuscular HGB CONC 29.5 g/dL (32.0-36.0); Mean Corpuscular Hemoglobin 24.1 pg (27.0-31.0); Mean Corpuscular Volume 81.6 fL (78.0-98.0); Mean Platelet Volume 6.8 fL (7.4-10.4); Platelet Count 513 thou/uL (130-400); RBC Distribution Width 15.9 % (11.5-14.5); Red Blood Cell (RBC) Count 3.23 mill/uL (4.70-6.10); White Blood Cell (WBC) Count 6.9 thou/uL (4.8-10.8)
[2022-06-28 05:38] LABS: Anion Gap 12 mmol/L (10-20); BUN (Urea Nitrogen) 5 mg/dL (8.4-25.7); Calc. Creatinine Clearance 287 mL/min (70-130); Calcium 10.1 mg/dL (7.8-10.44); Carbon Dioxide 22 mmol/L (22-29); Chloride 106 mmol/L (98-107); Estimated GFR 112; Glucose 128 mg/dL (70-105); Potassium 3.5 mmol/L (3.5-5.1); Sodium 136 mmol/L (136-145)
[2022-06-28] MEDS: Levothyroxine Sodium 50 MCG TAB PO SCH (06:04)
[2022-06-28] MEDS ORDERED: Potassium Chloride 20 MEQ TAB PO SCH (09:00)
[2022-06-28] MEDS: Ondansetron ODT 4 MG TAB PO SCH (09:18)
[2022-06-28] MEDS: HYDROcodone/Acetaminophen 10/325 mg Tablet PO PRN (09:18)
[2022-06-28] MEDS: Tamsulosin HCl 0.4 MG CAP PO SCH (09:19)
[2022-06-28] MEDS: Fluticasone Propionate Nasal Spray 16 gm Bottle NASAL SCH (09:19)
[2022-06-28] MEDS: Apixaban 5 MG TAB PO SCH ×2 (09:19→20:24)
[2022-06-28] MEDS: CABOZANTINIB 60 MG PO SCH (09:19)
[2022-06-28] MEDS: Senokot S 8.6-50 MG TAB PO SCH ×2 (09:19→20:24)
[2022-06-28] MEDS: Lidocaine 5% Patch TD SCH (16:07)
[2022-06-28] MEDS: Polyethylene Glycol 3350 17 GM Packet PO SCH (20:24)
[2022-06-29] MEDS: Transdermal Patch Removal TOP SCH (02:55)
[2022-06-29 03:49] VITALS: BMI 48.7
[2022-06-29] MEDS: Levothyroxine Sodium 50 MCG TAB PO SCH (05:12)
[2022-06-29] MEDS: HYDROcodone/Acetaminophen 7.5/325 mg Tablet PO PRN ×2 (05:12→18:28)
[2022-06-29 05:18] LABS: ALT (SGPT) 10 U/L (8-55); AST (SGOT) 21 U/L (5-34); Albumin 2.1 g/dL (3.5-5.0); Alkaline Phosphatase 99 U/L (40-110); Anion Gap 14 mmol/L (10-20); BUN (Urea Nitrogen) 5 mg/dL (8.4-25.7); Bilirubin, Total 0.6 mg/dL (0.2-1.2); Calc. Creatinine Clearance 287 mL/min (70-130); Carbon Dioxide 20 mmol/L (22-29); Chloride 106 mmol/L (98-107); Estimated GFR 112; Globulin 3.3 g/dL (2.4-3.5); Glucose 128 mg/dL (70-105); Potassium 3.7 mmol/L (3.5-5.1); Protein, Total 5.4 g/dL (6.0-8.3); Sodium 136 mmol/L (136-145)
[2022-06-29 05:47] LABS: #Eosinphils 0.1 thou/uL (0.0-0.7); #Lymphocytes 0.8 thou/uL (1.20-3.40); #Monocytes 0.9 thou/uL (0.11-0.59); #Neutrophils 4.4 thou/uL (1.40-6.50); %Basophils 0.4 % (0.0-1.0); %Eosinophils 1.9 % (0.0-10.0); %Lymphocytes 12.1 % (21.0-51.0); %Monocytes 14.4 % (0.0-10.0); %Neutrophils 71.1 % (42.0-75.0); Mean Corpuscular HGB CONC 29.7 g/dL (32.0-36.0); Mean Corpuscular Hemoglobin 24.1 pg (27.0-31.0); Mean Corpuscular Volume 81.3 fL (78.0-98.0); Mean Platelet Volume 6.6 fL (7.4-10.4); Platelet Count 514 thou/uL (130-400); RBC Distribution Width 15.9 % (11.5-14.5); Red Blood Cell (RBC) Count 3.33 mill/uL (4.70-6.10); White Blood Cell (WBC) Count 6.2 thou/uL (4.8-10.8)
[2022-06-29] MEDS: HYDROcodone/Acetaminophen 10/325 mg Tablet PO PRN (08:53)
[2022-06-29] MEDS: Ondansetron ODT 4 MG TAB PO SCH (08:54)
[2022-06-29] MEDS: Apixaban 5 MG TAB PO SCH ×2 (08:54→21:13)
[2022-06-29] MEDS: Tamsulosin HCl 0.4 MG CAP PO SCH (08:54)
[2022-06-29] MEDS: Fluticasone Propionate Nasal Spray 16 gm Bottle NASAL SCH (08:54)
[2022-06-29] MEDS: Senokot S 8.6-50 MG TAB PO SCH ×2 (11:53→21:13)
[2022-06-29] MEDS: CABOZANTINIB 60 MG PO SCH (11:53)
[2022-06-29] MEDS: Sodium Chloride 0.9% 1,000 ML IV SCH ×2 (13:30→15:25)
[2022-06-29] MEDS: Lidocaine 5% Patch TD SCH (15:23)
[2022-06-29] MEDS: Polyethylene Glycol 3350 17 GM Packet PO SCH (21:17)
[2022-06-30] MEDS: Transdermal Patch Removal TOP SCH (02:25)
[2022-06-30] MEDS: Sodium Chloride 0.9% 1,000 ML IV SCH ×2 (04:37→20:01)
[2022-06-30] MEDS: Levothyroxine Sodium 50 MCG TAB PO SCH (06:16)
[2022-06-30] MEDS: HYDROcodone/Acetaminophen 7.5/325 mg Tablet PO PRN (06:27)
[2022-06-30] MEDS: Fluticasone Propionate Nasal Spray 16 gm Bottle NASAL SCH (08:42)
[2022-06-30] MEDS: Ondansetron ODT 4 MG TAB PO SCH (08:45)
[2022-06-30] MEDS: Tamsulosin HCl 0.4 MG CAP PO SCH (08:45)
[2022-06-30] MEDS: Apixaban 5 MG TAB PO SCH ×2 (08:45→20:03)
[2022-06-30] MEDS: CABOZANTINIB 60 MG PO SCH (08:46)
[2022-06-30] MEDS: HYDROcodone/Acetaminophen 10/325 mg Tablet PO PRN ×2 (08:51→19:21)
[2022-06-30] MEDS ORDERED: DULoxetine 30 MG CAP PO SCH (10:10)
[2022-06-30] MEDS: Senokot S 8.6-50 MG TAB PO SCH ×2 (12:27→20:02)
[2022-06-30 15:02] LABS: Anion Gap 14 mmol/L (10-20); BUN (Urea Nitrogen) 6 mg/dL (8.4-25.7); Calc. Creatinine Clearance 282 mL/min (70-130); Calcium 9.3 mg/dL (7.8-10.44); Carbon Dioxide 23 mmol/L (22-29); Chloride 104 mmol/L (98-107); Estimated GFR 111; Glucose 89 mg/dL (70-105); Potassium 3.8 mmol/L (3.5-5.1); Sodium 137 mmol/L (136-145)
[2022-06-30] MEDS: Cyclobenzaprine 10 MG TAB PO PRN (16:14)
[2022-06-30] MEDS: Lidocaine 5% Patch TD SCH (16:14)
[2022-06-30] MEDS: Polyethylene Glycol 3350 17 GM Packet PO SCH (20:02)
[2022-06-30] MEDS: Gabapentin 300 MG CAP PO SCH (20:03)
[2022-07-01] MEDS: Transdermal Patch Removal TOP SCH (03:41)
[2022-07-01] MEDS: Levothyroxine Sodium 50 MCG TAB PO SCH (05:58)
[2022-07-01] MEDS: Cyclobenzaprine 10 MG TAB PO PRN ×2 (05:58→15:16)
[2022-07-01 08:19] VITALS: BP 122/67; TEMP 98.1
[2022-07-01] MEDS: Gabapentin 300 MG CAP PO SCH (08:33)
[2022-07-01] MEDS: Apixaban 5 MG TAB PO SCH (08:33)
[2022-07-01] MEDS: Senokot S 8.6-50 MG TAB PO SCH (08:34)
[2022-07-01] MEDS: CABOZANTINIB 60 MG PO SCH (08:34)
[2022-07-01] MEDS: Tamsulosin HCl 0.4 MG CAP PO SCH (08:34)
[2022-07-01] MEDS: Ondansetron ODT 4 MG TAB PO SCH (08:34)
[2022-07-01] MEDS: Fluticasone Propionate Nasal Spray 16 gm Bottle NASAL SCH (08:36)
[2022-07-01] MEDS: Sodium Chloride 0.9% 1,000 ML IV SCH (08:46)
[2022-07-01] MEDS ORDERED: DULoxetine 30 MG CAP PO SCH (09:00)
[2022-07-01] MEDS: HYDROcodone/Acetaminophen 10/325 mg Tablet PO PRN (09:39)
[2022-07-01] MEDS: Lidocaine 5% Patch TD SCH (15:10)
== END 2022-07-01 17:10 | disposition swing bed (61) | DRG 542 ==
LOC: ERS 13:40 → ERHOLD 18:24 → 2NO 20:48 → MSONC 06-28 18:16
PROVIDERS: ADMIT Internal Medicine; ATTEND Internal Medicine
PROC: 5A09357 Assistance with Respiratory Ventilation, Less than 24 Consecutive Hours, Continuous Positive Airway Pressure (ICD-10-PCS; 2022-06-16)
PROC: DPY97ZZ Contact Radiation of Femur (ICD-10-PCS; principal; 2022-06-21)
DX: C79.51 Secondary malignant neoplasm of bone (principal); G92.8 Other toxic encephalopathy; G93.6 Cerebral edema; M84.551A Pathological fracture in neoplastic disease, right femur, initial encounter for fracture; C64.2 Malignant neoplasm of left kidney, except renal pelvis; Z68.41 Body mass index [BMI] 40.0-44.9, adult; C79.31 Secondary malignant neoplasm of brain; D68.69 Other thrombophilia; C78.02 Secondary malignant neoplasm of left lung; C78.01 Secondary malignant neoplasm of right lung; C78.5 Secondary malignant neoplasm of large intestine and rectum; Z20.822 Contact with and (suspected) exposure to COVID-19; E87.5 Hyperkalemia; E87.6 Hypokalemia; E83.42 Hypomagnesemia; E83.39 Other disorders of phosphorus metabolism; E66.01 Morbid (severe) obesity due to excess calories; G89.4 Chronic pain syndrome; I10 Essential (primary) hypertension; K59.00 Constipation, unspecified; G47.33 Obstructive sleep apnea (adult) (pediatric); E03.9 Hypothyroidism, unspecified; M19.90 Unspecified osteoarthritis, unspecified site; Z96.653 Presence of artificial knee joint, bilateral; F17.290 Nicotine dependence, other tobacco product, uncomplicated; N40.0 Benign prostatic hyperplasia without lower urinary tract symptoms; Z88.0 Allergy status to penicillin; Z86.718 Personal history of other venous thrombosis and embolism; Z98.890 Other specified postprocedural states; Z80.9 Family history of malignant neoplasm, unspecified; Z82.49 Family history of ischemic heart disease and other diseases of the circulatory system; Z79.01 Long term (current) use of anticoagulants; Z79.899 Other long term (current) drug therapy; Z79.890 Hormone replacement therapy; Z74.01 Bed confinement status; Z79.51 Long term (current) use of inhaled steroids; E83.52 Hypercalcemia; Z79.1 Long term (current) use of non-steroidal anti-inflammatories (NSAID)
CPT/HCPCS: 36415; 36416; 70450; 71045; 71275; 74018; 74177; 77014; 77280; 77290; 77307; 77334; 77412; 77417; 80048; 80053; 81003; 83605; 83735; 84100; 84439; 84443; 85025; 87040; 87086; 93005; 93010; 93970; 94760; 96374; 96375; J0630; J0692; J1100; J3370; J3475; J3489; J3490; J7050; Q0162; Q9967; U0002; U0003; U0005

== ENCOUNTER 2022-09-29 08:17 | Outpatient (CLI) | payer OTHER ==
[2022-09-29] MEDS ORDERED: Iopamidol 370 76% 100 ML VIAL ONE (09:29)
== END 2022-09-29 08:18 | disposition home or self-care (01) ==
LOC: NM 08:17
PROVIDERS: ATTEND Internal Medicine Hematology & Oncology
DX: C64.2 Malignant neoplasm of left kidney, except renal pelvis (principal); C79.51 Secondary malignant neoplasm of bone; R91.8 Other nonspecific abnormal finding of lung field
CPT/HCPCS: 71260; 74177; 78306; A9503; Q9967

== ENCOUNTER 2022-09-30 13:13 | Outpatient (CLI) | payer OTHER ==
[2022-09-30] MEDS ORDERED: Magnevist 469MG/ML 20 ML VIAL ONE (15:05)
== END 2022-09-30 13:14 | disposition home or self-care (01) ==
LOC: MRI 13:13
PROVIDERS: ATTEND Radiology Radiation Oncology
DX: C64.9 Malignant neoplasm of unspecified kidney, except renal pelvis (principal); C79.31 Secondary malignant neoplasm of brain; G93.9 Disorder of brain, unspecified
CPT/HCPCS: 70553; A9579

== ENCOUNTER 2022-12-29 13:20 | Outpatient (CLI) | payer OTHER ==
[~2022-12-29 13:20] MED LIST changes: -Iopamidol-370 76% 500 ML 1 ML ONE; +Magnevist 469MG/ML 20 ML VIAL ONE
== END 2022-12-29 13:21 | disposition home or self-care (01) ==
LOC: TBSIIMAG 13:20
PROVIDERS: ATTEND Radiology Radiation Oncology
DX: C79.31 Secondary malignant neoplasm of brain (principal); C64.9 Malignant neoplasm of unspecified kidney, except renal pelvis
CPT/HCPCS: 70553; A9579

== ENCOUNTER 2023-01-04 10:55 | Outpatient (CLI) | payer OTHER ==
[~2023-01-04 10:55] MED LIST changes: +Iopamidol 370 76% 100 ML VIAL ONE; -Magnevist 469MG/ML 20 ML VIAL ONE
== END 2023-01-04 10:56 | disposition home or self-care (01) ==
LOC: NM 10:55
PROVIDERS: ATTEND Internal Medicine Hematology & Oncology
DX: C64.2 Malignant neoplasm of left kidney, except renal pelvis (principal); C79.51 Secondary malignant neoplasm of bone; R91.8 Other nonspecific abnormal finding of lung field; N28.89 Other specified disorders of kidney and ureter; M25.78 Osteophyte, vertebrae; Z79.899 Other long term (current) drug therapy
CPT/HCPCS: 71260; 74177; 78306; 82565; A9503; Q9967

== ENCOUNTER 2023-06-06 10:28 | Outpatient (CLI) | payer OTHER ==
[~2023-06-06 10:28] MED LIST changes: -Iopamidol 370 76% 100 ML VIAL ONE; +Magnevist 469MG/ML 20 ML VIAL ONE
== END 2023-06-06 10:29 | disposition home or self-care (01) ==
LOC: MRI 10:28
PROVIDERS: ATTEND Radiology Radiation Oncology
DX: C79.31 Secondary malignant neoplasm of brain (principal); G93.9 Disorder of brain, unspecified
CPT/HCPCS: 70553; A9579

== ENCOUNTER 2023-09-14 11:15 | Outpatient (CLI) | payer OTHER | END 2023-09-14 11:16 | disposition home or self-care (01) | LOC: ULT 11:15 | PROVIDERS: ATTEND Family Medicine | DX: Z86.718 Personal history of other venous thrombosis and embolism (principal) ==

== ENCOUNTER 2023-12-05 09:34 | Outpatient (CLI) | payer OTHER ==
[2023-12-05] MEDS ORDERED: Magnevist 469MG/ML 20 ML VIAL ONE (12:12)
== END 2023-12-05 09:35 | disposition home or self-care (01) ==
LOC: MRI 09:34
PROVIDERS: ATTEND Radiology Radiation Oncology
DX: C64.9 Malignant neoplasm of unspecified kidney, except renal pelvis (principal); C79.31 Secondary malignant neoplasm of brain; G93.9 Disorder of brain, unspecified; G93.6 Cerebral edema
CPT/HCPCS: 70553; A9579

== ENCOUNTER 2024-04-20 12:36 | Outpatient (CLI) | payer MEDICARE ==
[~2024-04-20 12:36] MED LIST changes: +Iopamidol 370 76% 100 ML VIAL ONE; -Magnevist 469MG/ML 20 ML VIAL ONE
== END 2024-04-20 12:37 | disposition home or self-care (01) ==
LOC: CT 12:36
PROVIDERS: ATTEND Internal Medicine Hematology & Oncology
DX: C64.2 Malignant neoplasm of left kidney, except renal pelvis (principal); C79.51 Secondary malignant neoplasm of bone
CPT/HCPCS: 71260; 74177

== ENCOUNTER 2024-07-20 12:31 | Outpatient (CLI) | payer MEDICARE | END 2024-07-20 12:32 | disposition home or self-care (01) | LOC: CT 12:31 | PROVIDERS: ATTEND Internal Medicine Hematology & Oncology | DX: C64.2 Malignant neoplasm of left kidney, except renal pelvis (principal); C79.51 Secondary malignant neoplasm of bone; R91.8 Other nonspecific abnormal finding of lung field; N28.89 Other specified disorders of kidney and ureter; R59.0 Localized enlarged lymph nodes | CPT/HCPCS: 36415; 71260; 74177; 82565; Q9967 ==

== ENCOUNTER 2024-09-06 13:17 | Outpatient (CLI) | payer MEDICARE | END 2024-09-06 13:18 | disposition home or self-care (01) | LOC: MRI 13:17 | PROVIDERS: ATTEND Radiology Radiation Oncology | DX: C64.9 Malignant neoplasm of unspecified kidney, except renal pelvis (principal); C79.31 Secondary malignant neoplasm of brain; G93.89 Other specified disorders of brain; I61.9 Nontraumatic intracerebral hemorrhage, unspecified | CPT/HCPCS: 70553; 76376 ==